=== PATIENT | female | born 1945 | race Caucasian/White ===

== ENCOUNTER 2020-08-29 13:16 | Outpatient (REF) | payer MEDICARE, OTHER, SELFPAY ==
--- NOTE | 2020-08-29 | XR_ITS ---
EXAMINATION: XR knee LT 4V CLINICAL INFORMATION: Reason for Exam PAIN COMPARISON: None available at the time of this dictation. TECHNIQUE: frontal, lateral, tunnel and patella sunrise views FINDINGS: BONES: No fracture or dislocation is present. JOINTS: Mild narrowing of medial and lateral joint spaces suggest degenerative osteoarthritis. There is intra-articular calcifications lateral compartment, concerning for calcium pyrophosphate deposition disease. SOFT TISSUE: Normal IMPRESSION: 1. Mild DJD. 2. Intra-articular calcifications concerning for possible CPPD. 3. No significant knee joint effusion.
== END 2020-08-29 13:17 | disposition home or self-care (01) ==
LOC: HO.XRAY 13:16
PROVIDERS: PCP Internal Medicine; Visit Provider Internal Medicine
DX: M25.562 Pain in left knee (principal)
CPT/HCPCS: 73564

== ENCOUNTER 2020-10-17 12:29 | Outpatient (REF) | payer MEDICARE, OTHER, SELFPAY ==
--- NOTE | 2020-10-17 | MM_ITS ---
EXAMINATION: MM SCREENING DIGITAL BREAST TOMOSYNTHESIS, BILATERAL CLINICAL INFORMATION: Screening. Asymptomatic. The lifetime risk of breast cancer based on the Tyrer-Cuzick Model is 4.7%. COMPARISON: Mammography: October 13, 2019 and studies dating back to September 14, 2012 TECHNIQUE: Digital breast tomosynthesis is performed in both the craniocaudal and mediolateral oblique views along with computer-aided detection (CAD). Synthesized 2D images are generated from the tomosynthesis. FINDINGS: There are scattered areas of fibroglandular density (ACR BI-RADS breast composition Category b). There are no significant masses, abnormal calcifications, or other abnormalities. MM/MM tomosynthesis screening BI IMPRESSION: There are no significant changes from prior study. ASSESSMENT: BI-RADS 1: Negative RECOMMENDATION: Routine annual mammography screening. This patient's information was entered into a reminder system with a target due date for their next mammogram.
== END 2020-10-17 12:30 | disposition home or self-care (01) ==
LOC: HO.MAMMO 12:29
PROVIDERS: PCP Internal Medicine; Visit Provider Internal Medicine
DX: Z12.31 Encounter for screening mammogram for malignant neoplasm of breast (principal)
CPT/HCPCS: 77063; 77067

== ENCOUNTER 2020-12-31 18:21 | Emergency (ER) | payer MEDICARE, OTHER, SELFPAY ==
--- NOTE | ~2020-12-31 | US_ITS ---
EXAMINATION: ULTRASOUND PELVIC, COMPLETE CLINICAL INFORMATION: Right-sided pelvic pain. COMPARISON: CT abdomen pelvis 12/31/2020. Ultrasound pelvis 09/29/2016 MR pelvis 03/25/2016. TECHNIQUE: Transvaginal: Used to better visualize pelvic structures Transabdominal: Not adequate visualization Spectral Doppler and color Doppler exam was utilized. LMP: Postmenopausal FINDINGS: UTERUS: Unremarkable. Uterus measures 6.8 x 2.1 x 4.2 cm. Endometrial stripe measures 0.2 cm. ADNEXA: Ovarian vascularity:Doppler demonstrates both arterial and venous vascular flow in the right ovary. No evidence of ovarian torsion. Right Ovary: There is a right adnexal cyst. Debris this has low-level echoes layering dependently, small volume of debris is otherwise anechoic. This cyst measures 5.9 x 6.9 cm. Both of these have not substantially changed since MR pelvis study of 03/25/2016. There is also a 1.5 cm follicle/cyst in the right ovary. The right ovary overall measures 5.9 x 6.9 x 7.4 cm. Left Ovary: Not visualized. No left adnexal abnormality. Cul-de-sac: No Fluid US/US transvaginal IMPRESSION: 1. Stable right ovarian cyst which have remained unchanged since 2016. Doppler demonstrates vascular flow in the right ovary. 2. Left ovary not visualized. No adnexal abnormality on the left. 3. Normal uterus.
--- NOTE | ~2020-12-31 | US_ITS ---
EXAMINATION: ULTRASOUND PELVIC, COMPLETE CLINICAL INFORMATION: Right-sided pelvic pain. COMPARISON: CT abdomen pelvis 12/31/2020. Ultrasound pelvis 09/29/2016 MR pelvis 03/25/2016. TECHNIQUE: Transvaginal: Used to better visualize pelvic structures Transabdominal: Not adequate visualization Spectral Doppler and color Doppler exam was utilized. LMP: Postmenopausal FINDINGS: UTERUS: Unremarkable. Uterus measures 6.8 x 2.1 x 4.2 cm. Endometrial stripe measures 0.2 cm. ADNEXA: Ovarian vascularity:Doppler demonstrates both arterial and venous vascular flow in the right ovary. No evidence of ovarian torsion. Right Ovary: There is a right adnexal cyst. Debris this has low-level echoes layering dependently, small volume of debris is otherwise anechoic. This cyst measures 5.9 x 6.9 cm. Both of these have not substantially changed since MR pelvis study of 03/25/2016. There is also a 1.5 cm follicle/cyst in the right ovary. The right ovary overall measures 5.9 x 6.9 x 7.4 cm. Left Ovary: Not visualized. No left adnexal abnormality. Cul-de-sac: No Fluid US/US pelvic ovarian doppler IMPRESSION: 1. Stable right ovarian cyst which have remained unchanged since 2016. Doppler demonstrates vascular flow in the right ovary. 2. Left ovary not visualized. No adnexal abnormality on the left. 3. Normal uterus.
--- NOTE | ~2020-12-31 | US_ITS ---
EXAMINATION: ULTRASOUND PELVIC, COMPLETE CLINICAL INFORMATION: Right-sided pelvic pain. COMPARISON: CT abdomen pelvis 12/31/2020. Ultrasound pelvis 09/29/2016 MR pelvis 03/25/2016. TECHNIQUE: Transvaginal: Used to better visualize pelvic structures Transabdominal: Not adequate visualization Spectral Doppler and color Doppler exam was utilized. LMP: Postmenopausal FINDINGS: UTERUS: Unremarkable. Uterus measures 6.8 x 2.1 x 4.2 cm. Endometrial stripe measures 0.2 cm. ADNEXA: Ovarian vascularity:Doppler demonstrates both arterial and venous vascular flow in the right ovary. No evidence of ovarian torsion. Right Ovary: There is a right adnexal cyst. Debris this has low-level echoes layering dependently, small volume of debris is otherwise anechoic. This cyst measures 5.9 x 6.9 cm. Both of these have not substantially changed since MR pelvis study of 03/25/2016. There is also a 1.5 cm follicle/cyst in the right ovary. The right ovary overall measures 5.9 x 6.9 x 7.4 cm. Left Ovary: Not visualized. No left adnexal abnormality. Cul-de-sac: No Fluid US/US pelvic complete IMPRESSION: 1. Stable right ovarian cyst which have remained unchanged since 2016. Doppler demonstrates vascular flow in the right ovary. 2. Left ovary not visualized. No adnexal abnormality on the left. 3. Normal uterus.
--- NOTE | ~2020-12-31 | CT_ITS ---
EXAMINATION: CT ABDOMEN AND PELVIS WITHOUT CONTRAST CLINICAL INFORMATION: Right-sided abdominal pain COMPARISON: CT abdomen pelvis 03/21/2016 TECHNIQUE: Multidetector volumetric imaging was performed from the superior aspect of the liver through the pubic symphysis. Sagittal and coronal reformatted images were obtained on the technologist's workstation. This CT examination was performed using dose optimization techniques as appropriate, variously including the following: *Automated exposure control *Adjustment of mA and/or kV according to patient size (this includes techniques or standardized protocols for targeted exams where dose is matched to indication/reason for exam; i.e. extremities or head) *Use of iterative reconstruction technique DLP: 393 mGy-cm FINDINGS: LUNG BASES: There is a 6 mm rounded nodule present at the right lung base that was not present 2016 (series 4 image 46). LIVER, GALLBLADDER, AND BILIARY TREE: The liver is normal in size, shape, and attenuation. A couple calcified granulomas are present. No focal hepatic lesion or biliary ductal dilatation is present. The gallbladder is unremarkable with no evidence of radiopaque gallstones, gallbladder wall thickening, or obvious pericholecystic inflammatory changes. PANCREAS: Unremarkable. SPLEEN: Calcified granulomas are present. ADRENAL GLANDS: Unremarkable. KIDNEYS AND URETERS: The kidneys are normal in size, shape, and attenuation. No hydronephrosis, hydroureter, or calculi seen. No perinephric stranding. BLADDER: Decompressed but unremarkable GASTROINTESTINAL TRACT: The small and large bowel are unremarkable. The appendix is unremarkable. ABDOMINAL WALL: No significant hernia is appreciated. LYMPH NODES: Normal. VASCULAR: Calcific plaque is present in the aorta. No aneurysm is seen. PELVIC VISCERA: A large complex cystic mass is present posterior to the uterus with thickened septations. Overall the mass measures 8.5 x 6.0 x 6.9 cm. Overall, this appears larger. At the time of the prior CT scan in 2016 with maximal dimension was 6.3 cm in the transverse plane. Solid components appear increased as do thickened septations. OSSEOUS STRUCTURES: Degenerative changes present in the spine. CT/CT abdomen pelvis wo con IMPRESSION: 1. Enlarging complex pelvic mass predominantly in the midline extending a bit to the right. Neoplasm cannot be excluded. Gynecological consultation is recommended. 2. Calcified granulomas in the liver and spleen 3. New 6 mm lung nodule right lung base. This should be followed via Fleischner Society criteria. According to the UPDATED 2017 Fleischner Society recommendations, the advised follow-up imaging for solid nodules < 6 mm is: LOW RISK PATIENT: No routine follow-up. HIGH RISK PATIENT: Optional CT at 12 months.
[2020-12-31 18:29] VITALS: BP 148/62; PULSE 80; RESP 16; TEMP 36.8; O2SAT 96; BMI 21.6
--- NOTE | 2020-12-31 19:16 | ECG_ITS ---
Test Reason : ABDOMINAL PAIN Blood Pressure : / mmHG Vent. Rate : 075 BPM Atrial Rate : 075 BPM P-R Int : 172 ms QRS Dur : 072 ms QT Int : 420 ms P-R-T Axes : 074 053 055 degrees QTc Int : 469 ms Normal sinus rhythm Normal ECG When compared with ECG of 21-MAR-2016 20:25, Premature supraventricular complexes are no longer Present Nonspecific T wave abnormality no longer evident in Anterior leads Referred By: Generic ED Physician Electronically Signed By:JOSEY MORALES MD
--- NOTE | 2020-12-31 19:25 | ED.ABDPAIN ---
HPI - Abdominal Pain General Chief Complaint: Abdominal Pain Stated Complaint: abd pain Time Seen by Provider: 12/31/20 19:25 Source: patient Mode of arrival: ambulatory Limitations: no limitations History of Present Illness HPI narrative: Patient's history of ovarian cyst since 2016 stable size does get ultrasound now almost every 6 months and followed up with product responsibility liaison comes here for increased pain in right lower abdominal area since morning today and nausea and vomited 1 time no diarrhea no fever no chills no urinary symptoms no flank pain MD elicited complaint: abdominal pain Pertinent past history: none Onset (ago): hour(s) Pain Consistency: intermittent Location: RLQ Related Data Allergies Allergy/AdvReac Type Severity Reaction Status Date / Time codeine [CODEINE] Allergy Unknown HIVES Unverified 07/26/20 14:38 ephedrine [EPHEDRINE] Allergy Unknown TACHYCARDIA Unverified 07/26/20 14:38 ibuprofen Allergy Unknown Verified 12/31/17 00:00 kiwi [KIWI] Allergy Unknown UNKNOWN Unverified 07/26/20 14:38 latex [LATEX] Allergy Unknown HIVES Unverified 07/26/20 14:38 morphine [MORPHINE] Allergy Unknown RASH Unverified 07/26/20 14:38 NSAIDS (Non-Steroidal Allergy Unknown STOMACH Unverified 07/26/20 14:38 Anti-Inflamma UPSET [NSAIDS] From DARVOCET-N 100 Allergy Severe SHORTNESS Uncoded 07/26/20 14:38 OF BREATH 5 Molds Allergy Unknown Uncoded 10/06/16 00:00 Cats Allergy Unknown Uncoded 10/06/16 00:00 cats Allergy Unknown Uncoded 12/31/17 00:00 Codeine Phosphate Allergy Unknown Uncoded 10/06/16 00:00 Darvocet A500 Allergy Unknown Uncoded 12/31/17 00:00 Dust Allergy Unknown Uncoded 10/06/16 00:00 dust Allergy Unknown Uncoded 12/31/17 00:00 Insects Allergy Unknown Uncoded 10/06/16 00:00 insects Allergy Unknown Uncoded 12/31/17 00:00 kiwi fruit Allergy Unknown Uncoded 12/31/17 00:00 Maple Allergy Unknown Uncoded 10/06/16 00:00 maple Allergy Unknown Uncoded 12/31/17 00:00 mold Allergy Unknown Uncoded 12/31/17 00:00 Novocain Allergy Unknown Uncoded 10/06/16 00:00 Pig weed Allergy Unknown Uncoded 10/06/16 00:00 pig weed Allergy Unknown Uncoded 12/31/17 00:00 poplar Allergy Unknown Uncoded 12/31/17 00:00 Ragweed Allergy Unknown Uncoded 10/06/16 00:00 ragweed Allergy Unknown Uncoded 12/31/17 00:00 rubber latex Allergy Unknown Uncoded 12/31/17 00:00 Review of Systems Review of Systems Constitutional : No Weight loss, No Fever, No Chills ENT/Mouth : No sore throat, No Rhinorrhea Eyes: No Eye Pain, No Swelling Cardiovascular : No Chest Pain, no palpitations Respiratory : No Cough, No Sputum, no shortness of breath Gastrointestinal : +Nausea, +Vomiting, No Diarrhea, + abdominal Pain, no black stools Genitourinary : No Dysuria, No Urinary Frequency Musculoskeletal : No joint pain, No Myalgias, No Joint Swelling Skin : No Skin Lesions, No rash Neuro : No Weakness, No Numbness, No Dizziness, No Headache Psych : No Anxiety/Panic, No Depression Heme/Lymph: No Bruising, No Lymphadenopathy Endocrine : No Polyuria, No Polydipsia All other systems reviewed and are negative Physical Exam Vital Signs: Vital Signs: Last Vital Signs Temp 98.3 F 12/31/20 18:29 Pulse 74 12/31/20 22:29 Resp 16 12/31/20 22:29 BP 126/52 L 12/31/20 22:29 Pulse Ox 94 12/31/20 22:29 Body Mass Index 21.6 Appearance: Alert. Oriented X3. In moderate distress. Eyes: Pupils equal, round and reactive to light. ENT: Pharynx normal. Neck: Normal inspection. Neck supple. CVS: Normal heart rate and rhythm. Pulses normal. Respiratory: No respiratory distress. Breath sounds normal. Abdomen: Soft , tenderness right lower quadrant with guarding no rebound tenderness Bowel sounds are present, no mass palpable, no CVA tenderness Skin: Skin warm and dry. Normal skin color. Normal skin turgor. Extremities: No lower extremity edema. No calf tenderness Neuro: Oriented X 3. No motor deficit. No sensory deficit. MDM - Abdominal Pain MDM Narrative Medical decision making narrative: Patient with right lower abdominal pain with history of ovarian cyst CT scan showed increase in the size of the cyst ultrasound was done which showed no change in the size of the cyst no torsion or hemorrhage in the cyst urine is negative for any infection no kidney stones appendix also normal etiology of pain is likely from ovarian cyst. Will discharge patient home on Tylenol and diclofenac sodium patch for the pain and advised to follow-up with product responsibility liaison Differential Diagnosis Differential diagnosis: Likely abdominal pain, acute appendicitis, calculus of kidney and pancreatitis Lab Data Result diagrams: 12/31/20 19:25 12/31/20 19:25 Labs: Lab Results 12/31/20 12/31/20 12/31/20 Range/Units 19:25 19:25 19:25 WBC 6.2 (4.8-10.8) X10*3/uL RBC 4.03 L (4.20-5.50) X10*6/uL Hgb 12.4 (12.0-16.0) g/dl Hct 37.4 (37-47) % MCV 92.8 (80-98) fL MCH 30.8 (27.0-33.0) pg MCHC 33.2 (31.0-35.0) g/dl RDW 12.4 (11.0-16.0) % Plt Count 253 (160-400) X10*3/uL MPV 8.9 L (9.4-12.3) fL Immature Gran % (Auto) 0.3 (0.0-0.4) % Neut % (Auto) 91.1 H (45-73) % Lymph % (Auto) 5.9 L (20-40) % [place] % (Auto) 2.4 (2-11) % Eos % (Auto) 0.0 (0-4) % Baso % (Auto) 0.3 (0-2) % Lymph # (Auto) 0.4 L (1.2-4.9) X10*3/uL [place] # (Auto) 0.2 (0.1-1.2) X10*3/uL Eos # (Auto) 0.0 (0.0-0.4) X10*3/uL Baso # (Auto) 0.0 (0.0-0.2) X10*3/uL Abs Immat Gran (auto) 0.02 (0.00-0.03) X10*3/uL Absolute Neuts (auto) 5.7 (2.0-8.3) X10*3/uL Absolute Nucleated RBC 0.000 (0.0-0.012) X10*3/uL Nucleated RBC % (auto) 0.0 (0.0-0.2) /100WBC Smear Tech's Comments VERIFIED Hold Blue Top SEE NOTE Sodium 142 (135-145) mmol/L Potassium 3.9 (3.3-5.1) mmol/L Chloride 105 (96-108) mmol/L Carbon Dioxide 25 (22-29) mmol/L Anion Gap 16 (12-20) BUN 14 (9-16) mg/dL Creatinine 0.77 (0.5-1.4) mg/dL Estim Creat Clear Calc 55.0 Estimated GFR > 60 Random Glucose 162 H (60-115) mg/dL Calcium 9.1 (8.4-10.2) mg/dL Total Bilirubin 0.5 (0.0-1.0) mg/dL AST 20 (5-31) U/L ALT 18 (0-31) U/L Alkaline Phosphatase 64 (39-117) U/L Troponin I High Sens (<3.5-17.0) ng/L Total Protein 7.1 (6.5-8.0) g/dL Albumin 4.2 (3.5-5.0) g/dL Lipase (8-78) U/L Urine Color Urine Appearance Urine pH (5.0-8.0) Ur Specific [place] (1.005-1.025) Urine Protein (NEG-TRACE) MG/DL Urine Glucose (UA) (NEG) MG/DL Urine Ketones (NEG) MG/DL Urine Blood (NEG) Urine Nitrite (NEG) Ur Leukocyte Esterase (NEG) 12/31/20 12/31/20 12/31/20 Range/Units 19:25 19:25 20:25 WBC (4.8-10.8) X10*3/uL RBC (4.20-5.50) X10*6/uL Hgb (12.0-16.0) g/dl Hct (37-47) % MCV (80-98) fL MCH (27.0-33.0) pg MCHC (31.0-35.0) g/dl RDW (11.0-16.0) % Plt Count (160-400) X10*3/uL MPV (9.4-12.3) fL Immature Gran % (Auto) (0.0-0.4) % Neut % (Auto) (45-73) % Lymph % (Auto) (20-40) % [place] % (Auto) (2-11) % Eos % (Auto) (0-4) % Baso % (Auto) (0-2) % Lymph # (Auto) (1.2-4.9) X10*3/uL [place] # (Auto) (0.1-1.2) X10*3/uL Eos # (Auto) (0.0-0.4) X10*3/uL Baso # (Auto) (0.0-0.2) X10*3/uL Abs Immat Gran (auto) (0.00-0.03) X10*3/uL Absolute Neuts (auto) (2.0-8.3) X10*3/uL Absolute Nucleated RBC (0.0-0.012) X10*3/uL Nucleated RBC % (auto) (0.0-0.2) /100WBC Smear Tech's Comments Hold Blue Top Sodium (135-145) mmol/L Potassium (3.3-5.1) mmol/L Chloride (96-108) mmol/L Carbon Dioxide (22-29) mmol/L Anion Gap (12-20) BUN (9-16) mg/dL Creatinine (0.5-1.4) mg/dL Estim Creat Clear Calc Estimated GFR Random Glucose (60-115) mg/dL Calcium (8.4-10.2) mg/dL Total Bilirubin (0.0-1.0) mg/dL AST (5-31) U/L ALT (0-31) U/L Alkaline Phosphatase (39-117) U/L Troponin I High Sens < 3.5 (<3.5-17.0) ng/L Total Protein (6.5-8.0) g/dL Albumin (3.5-5.0) g/dL Lipase 23 (8-78) U/L Urine Color YELLOW Urine Appearance CLEAR Urine pH 5.5 (5.0-8.0) Ur Specific [place] >= 1.030 H (1.005-1.025) Urine Protein TRACE (NEG-TRACE) MG/DL Urine Glucose (UA) NEG (NEG) MG/DL Urine Ketones 5 (NEG) MG/DL Urine Blood NEG (NEG) Urine Nitrite NEG (NEG) Ur Leukocyte Esterase NEG (NEG) PMFSH Past Medical History Medical History Ovarian cyst Social History Social History Advance Directives: No Advance Directives Information Provided: No
[2020-12-31 19:32] LABS: Basophils Percent Auto 0.3 % (0-2); Hematocrit 37.4 % (37-47); Hemoglobin 12.4 g/dl (12.0-16.0); Imm Gran Abs Auto 0.02 X10*3/uL (0.00-0.03); Imm Gran Pct Auto 0.3 % (0.0-0.4); Lymphocytes Absolute Auto 0.4 X10*3/uL (1.2-4.9); Lymphocytes Percent Auto 5.9 % (20-40); MANUAL DIFF FLAG SCAN; Mean Corpuscular HGB Conc 33.2 g/dl (31.0-35.0); Mean Corpuscular Hemoglobin 30.8 pg (27.0-33.0); Mean Corpuscular Volume 92.8 fL (80-98); Mean Platelet Volume 8.9 fL (9.4-12.3); Monocytes Absolute Auto 0.2 X10*3/uL (0.1-1.2); Monocytes Percent Auto 2.4 % (2-11); Neutrophils Absolute Auto 5.7 X10*3/uL (2.0-8.3); Neutrophils Percent Auto 91.1 % (45-73); Platelet Count 253 X10*3/uL (160-400); Red Blood Count 4.03 X10*6/uL (4.20-5.50); Red Cell Distribution Width 12.4 % (11.0-16.0); SCAN SMEAR FLAG 1; White Blood Count 6.2 X10*3/uL (4.8-10.8)
[2020-12-31 19:49] LABS: SLIDE REVIEW VERIFIED
[2020-12-31] MEDS: 0.9 % Sodium Chloride 1,000 ML 999 ML IVCONT ×2 (19:50→22:40)
[2020-12-31] MEDS: ondansetron HCL 4 MG/2 ML VIAL IVPUSH ×2 (19:50→21:30)
[2020-12-31] MEDS: HYDROmorphone HCl 0.5 MG/0.5 ML SYRINGE IVPUSH ×2 (19:50→20:35)
[2020-12-31 19:51] VITALS: BP 140/61; PULSE 83; RESP 24
--- NOTE | 2020-12-31 19:54 | PC.NURSE ---
Pt returns from CT, medicated per MAR for 10/10 pain to RLQ. IVF infusing. VSS. home theatre technician at bedside to obtain EKG. Call taylor within reach, continue to monitor.
[2020-12-31 20:04] LABS: Lipase 23 U/L (8-78)
[2020-12-31 20:05] LABS: Alanine Aminotransferase 18 U/L (0-31); Albumin Level 4.2 g/dL (3.5-5.0); Alkaline Phosphatase 64 U/L (39-117); Anion Gap 16 (12-20); Aspartate Amino Transferase 20 U/L (5-31); Bilirubin Total 0.5 mg/dL (0.0-1.0); Blood Urea Nitrogen 14 mg/dL (9-16); Calcium 9.1 mg/dL (8.4-10.2); Carbon Dioxide 25 mmol/L (22-29); Chloride 105 mmol/L (96-108); Estimated Glomerular Filt Rate > 60; Glucose Random 162 mg/dL (60-115); Potassium 3.9 mmol/L (3.3-5.1); Sodium 142 mmol/L (135-145); Total Protein 7.1 g/dL (6.5-8.0); Troponin-I High Sensitivity < 3.5 ng/L (<3.5-17.0)
[2020-12-31 20:06] VITALS: BP 140/86; PULSE 64; RESP 20; O2SAT 97
[2020-12-31 20:34] VITALS: BP 133/59; PULSE 75; RESP 20
--- NOTE | 2020-12-31 20:36 | PC.NURSE ---
Pt ambulating to the bathroom with assist to provide urine sample, pt voiding minimal amounts <100 ml. Pt denies difficulty urinating. Urine sample obtained and sent. Pt assisted back into bed into POC, medicated per JAN for 910 pain at this time. VSS. Call taylor within reach. MD at bedside discussing CT results and plan of care.
[2020-12-31 20:39] LABS: Glucose Urine UA NEG (NEG); Leukocyte Esterase Urine NEG (NEG); Nitrite Urine NEG (NEG); PH 5.5 (5.0-8.0); Specific Gravity - Urine >= 1.030 (1.005-1.025); Urine Blood NEG (NEG); Urine Ketones 5 MG/DL (NEG); Urine Protein TRACE MG/DL (NEG-TRACE)
[2020-12-31 20:40] LABS: Appearance Urine CLEAR; Color Urine YELLOW
[2020-12-31 21:30] VITALS: BP 126/51; PULSE 75; RESP 19
[2020-12-31 22:29] VITALS: BP 126/52; PULSE 74; RESP 16; O2SAT 94
--- NOTE | 2020-12-31 22:30 | PC.NURSE ---
Pt resting in bed, continues reporting persistent 10/10 pain to RLQ and nausea. Pt reports 2 episodes of vomiting during U/S. MD aware. VSS. Call taylor within reach. Continue to monitor.
[2020-12-31] MEDS: diphenhydrAMINE HCL 50 MG/ML VIAL 25 MG IVPUSH (22:40)
--- NOTE | 2020-12-31 22:42 | PC.NURSE ---
Pt medicated with Benadryl and IVF per MAR. VSS. Continue to monitor.
== END 2021-01-01 00:01 | disposition home or self-care (01) ==
PROVIDERS: Emergency Provider Internal Medicine; PCP Internal Medicine
DX: N83.291 Other ovarian cyst, right side (principal); N83.01 Follicular cyst of right ovary
CPT/HCPCS: 36415; 74176; 76830; 76856; 80053; 81003; 83690; 84484; 85025; 93005; 93975; 96361; 96374; 96375; 96376; 99284; J1170; J1200; J2405

== ENCOUNTER 2021-03-11 10:54 | Outpatient (REF) | payer MEDICARE, OTHER, SELFPAY ==
--- NOTE | ~2021-03-11 | US_ITS ---
EXAMINATION: US PELVIS AND TRANSVAGINAL CLINICAL INFORMATION: Right ovarian mass. COMPARISON: Right pelvis 12/31/2020. TECHNIQUE: Transabdominal and transvaginal imaging pelvis is performed. FINDINGS: The uterus is anteverted and anteflexed measuring 5.9 x 2.0 x 3.9 cm. Endometrial thickness is 0.4 cm. The uterus is homogeneous in echotexture. There is minimal fluid seen within the endometrial canal. There are several nabothian cysts seen in the cervix. The right ovary has been surgically removed. The left ovary measures 5.2 x 4.6 x 4.9 cm and volume 60.01 mL. There is a large anechoic cyst with a small central solid component and echogenic debris within. It measures 4.6 x 4.2 x 4.5 cm. US/US pelvic and transvaginal IMPRESSION: Predominantly cystic and a small solid component left ovarian complex cyst. It measures 4.6 cm in maximum dimension. Minimal fluid within the fundal endometrial canal. The uterus is otherwise unremarkable. Small nabothian cysts seen in the cervix.
== END 2021-03-11 10:55 | disposition home or self-care (01) ==
LOC: HO.US 10:54
PROVIDERS: PCP Internal Medicine; Visit Provider Obstetrics & Gynecology Gynecologic Oncology
DX: N83.9 Noninflammatory disorder of ovary, fallopian tube and broad ligament, unspecified (principal)
CPT/HCPCS: 76830; 76856

== ENCOUNTER 2021-10-22 10:11 | Outpatient (REF) | payer MEDICARE, OTHER, SELFPAY ==
--- NOTE | ~2021-10-22 | MM_ITS ---
EXAMINATION: BONE DENSITOMETRY CLINICAL INDICATION: Screening for osteoporosis. COMPARISON: Previous BD dated 10/08/2017 and baseline BD dated 09/07/2009. TECHNIQUE: Using a Ripple TV DXA System (software version: 13.1) manufactured by [employer], dual-energy x-ray absorptiometry was performed of the lumbar spine and left hip. The images are of good technical quality. Summary results are attached. FINDINGS: AP SPINE L1-L4: Current: BMD 1.086 g/cm2, Z-score 1.2, T-score -0.8, normal, 0.5% decrease from previous, 5.2% increase from baseline (<5% change is not significant). Prior: BMD 1.092 g/cm2. Baseline: BMD 1.032 g/cm2. LEFT FEMUR, NECK: Current: BMD 0.695 g/cm2, Z-score -0.3, T-score -2.5, osteoporosis. Prior: BMD 0.763 g/cm2. Baseline: BMD 0.783 g/cm2. LEFT FEMUR, TOTAL: Current: BMD 0.703 g/cm2, Z-score -0.4, T-score -2.4, osteopenia, 6.0% decrease from previous, 11.8% decrease from baseline (<5% change is not significant). Prior: BMD 0.748 g/cm2. Baseline: BMD 0.797 g/cm2. IDENTIFIED RISK FACTORS: Menopause, history of fracture (adult), family history (parent hip fracture). HISTORY OF FRACTURE: Sacral ala, 2018. MEDICATIONS: Calcium, vitamin D. MM/XR DEXA axial skeleton IMPRESSION: 1. DIAGNOSIS: Osteoporosis based on the lowest T-score value of -2.5 in the femoral neck applying World Health Organization criteria. 2. 10-YEAR FRACTURE RISK PREDICTION, FRAX: According to the guidelines, FRAX calculation should only be performed on patients in the osteopenia bone density category. 3. Treatment Recommendations: NOF guidelines recommend consideration for treatment in postmenopausal women and men age 50 and older presenting with the following: -A hip or vertebral (clinical or morphometric) fracture. -T-score less than or equal to -2.5 at the femoral neck or spine after appropriate evaluation to exclude secondary causes. -Low bone mass at the hip or spine and a 10-year fracture probability by FRAX of greater than or equal to 3% for hip fracture or greater than or equal to 20% for major osteoporotic fracture based on the [place] adapted WHO algorithm. 4. Other Recommendations: All treatment decisions require clinical judgment and consideration of individual patient factors, including patient preferences, comorbidities, previous drug use, risk factors not captured in the FRAX model (e.g. frailty, falls, vitamin D deficiency, increased bone turnover, interval significant decline in bone density) and possible under or overestimation of fracture risk by FRAX. Additional medical evaluation for secondary cause of low bone mineral density may be appropriate. FUTURE SCAN RECOMMENDATION: People with diagnosed cases of osteoporosis or at high risk for fracture should have regular bone mineral density tests. For patients eligible for Medicare, routine testing is allowed once every 2 years. The testing frequency can be increased to one year for patients who have rapidly progressing disease, those who are receiving or discontinuing medical therapy to restore bone mass, or have additional risk factors.
--- NOTE | ~2021-10-22 | MM_ITS ---
EXAMINATION: MM SCREENING DIGITAL BREAST TOMOSYNTHESIS, BILATERAL CLINICAL INFORMATION: Screening. Asymptomatic. The lifetime risk of breast cancer based on the Tyrer-Cuzick Model is 4%. COMPARISON: Mammography: 10/17/2020, 10/13/2019, 10/11/2018, 10/08/2017, 10/06/2016, 10/01/2015, 09/26/2014, 09/19/2014; targeted left breast ultrasound 09/26/2014. TECHNIQUE: Digital breast tomosynthesis is performed in both the craniocaudal and mediolateral oblique views along with computer-aided detection (CAD). Synthesized 2D images are generated from the tomosynthesis. FINDINGS: There are scattered areas of fibroglandular density (ACR BI-RADS breast composition Category b). Parenchymal pattern is similar to prior studies. There is waxing and waning oval cyst central upper outer left breast. Intramammary node mid upper outer right breast is stable. Asymmetric density posterior central breast on CC view is stable from prior exams. The axilla and skin contours are unremarkable. There are bilateral vascular and some scattered benign round calcifications. MM/MM tomosynthesis screening BI IMPRESSION: No significant changes from prior exams. ASSESSMENT: BI-RADS 2: Benign RECOMMENDATION: Routine annual mammography screening. This patient's information was entered into a reminder system with a target due date for their next mammogram.
== END 2021-10-22 10:12 | disposition home or self-care (01) ==
LOC: HO.MAMMO 10:11
PROVIDERS: PCP Internal Medicine; Visit Provider Internal Medicine
DX: Z12.31 Encounter for screening mammogram for malignant neoplasm of breast (principal); Z13.820 Encounter for screening for osteoporosis; M81.0 Age-related osteoporosis without current pathological fracture; Z78.0 Asymptomatic menopausal state; Z87.81 Personal history of (healed) traumatic fracture; Z79.899 Other long term (current) drug therapy
CPT/HCPCS: 77063; 77067; 77080

== ENCOUNTER 2022-02-06 13:24 | Outpatient (REF) | payer MEDICARE, OTHER, SELFPAY ==
--- NOTE | ~2022-02-06 | US_ITS ---
EXAMINATION: US PELVIS CLINICAL INFORMATION: Pelvic mass COMPARISON: Previous CT of the abdomen and pelvis December 2020 and pelvic ultrasound March 2021 TECHNIQUE: Ultrasound of the pelvis is performed using both transabdominal and transvaginal transducers along with Doppler. Transvaginal imaging is performed due to inadequate visualization transabdominally. FINDINGS: The uterus is anteverted and retroflexed and measures 6 x 2.3 x 4 cm in dimension. No focal uterine lesion is seen. Endometrial thickness is normal measuring 0.4 cm. The right ovary measures 1.9 x 1.6 x 1.8 cm. There is a 1.6 x 1.4 x 1.6 cm cyst in the right ovary. This is minimally complex with slightly thickened wall and internal echoes. This was not appreciated on previous exams. The left ovary is not seen. There is no fluid in pelvis. US/US pelvic and transvaginal IMPRESSION: 1.6 x 1.4 x 1.6 cm slightly complex right ovarian cyst. Left ovary not seen. Normal-appearing uterus.
== END 2022-02-06 13:25 | disposition home or self-care (01) ==
LOC: HO.US 13:24
PROVIDERS: Visit Provider Internal Medicine
DX: R19.00 Intra-abdominal and pelvic swelling, mass and lump, unspecified site (principal)
CPT/HCPCS: 76830; 76856

== ENCOUNTER 2022-08-04 10:50 | Outpatient (REF) | payer MEDICARE, OTHER, SELFPAY ==
--- NOTE | ~2022-08-04 | US_ITS ---
EXAMINATION: US PELVIS CLINICAL INFORMATION: Ovarian cyst COMPARISON: Pelvic ultrasound 03/11/2021 TECHNIQUE: Ultrasound of the pelvis is performed using both transabdominal and transvaginal transducers along with Doppler. Transvaginal imaging is performed due to inadequate visualization transabdominally. FINDINGS: Uterus: The uterus is anteverted and measures 6.4 x 2.3 x 4.2 cm. The double wall endometrial thickness is 3 mm. The uterus is smooth in contour and has normal myometrial echogenicity. No visible fibroid. Adnexa: The left ovary was not identified sonographically. No left adnexal mass.. There is no pelvic ascites or fluid collection. Right ovary measures 1.8 x 1.6 x 1.4 cm. Right ovary was only visualized transabdominally somewhat limiting evaluation. No right ovarian cyst is seen. US/US pelvic and transvaginal IMPRESSION: The left ovary was not identified sonographically. The right ovary was only visualized transabdominally, somewhat limiting evaluation however no right ovarian cyst is definitively appreciated.
== END 2022-08-04 10:51 | disposition home or self-care (01) ==
LOC: HO.US 10:50
PROVIDERS: Visit Provider Obstetrics & Gynecology Gynecologic Oncology
DX: N83.202 Unspecified ovarian cyst, left side (principal)
CPT/HCPCS: 76830; 76856

== ENCOUNTER 2022-10-28 09:45 | Outpatient (REF) | payer MEDICARE, OTHER, SELFPAY ==
--- NOTE | ~2022-10-28 | MM_ITS ---
EXAMINATION: MM SCREENING DIGITAL BREAST TOMOSYNTHESIS, BILATERAL CLINICAL INFORMATION: Screening. Asymptomatic. The lifetime risk of breast cancer based on the Tyrer-Cuzick Model is 3.6%. COMPARISON: Mammography: October 22, 2021 and studies dating back to October 01, 2015 TECHNIQUE: Digital breast tomosynthesis is performed in both the craniocaudal and mediolateral oblique views along with computer-aided detection (CAD). Synthesized 2D images are generated from the tomosynthesis. FINDINGS: There are scattered areas of fibroglandular density (ACR BI-RADS breast composition Category b). There are no significant masses, abnormal calcifications, or other abnormalities. MM/MM tomosynthesis screening BI IMPRESSION: No significant changes from prior exam. ASSESSMENT: BI-RADS 1: Negative RECOMMENDATION: Routine annual mammography screening. This patient's information was entered into a reminder system with a target due date for their next mammogram.
== END 2022-10-28 09:46 | disposition home or self-care (01) ==
LOC: HO.MAMMO 09:45
PROVIDERS: PCP Internal Medicine; Visit Provider Internal Medicine
DX: Z12.31 Encounter for screening mammogram for malignant neoplasm of breast (principal)
CPT/HCPCS: 77063; 77067

== ENCOUNTER 2023-02-12 11:34 | Outpatient (REF) | payer MEDICARE, OTHER, SELFPAY ==
--- NOTE | ~2023-02-12 | XR_ITS ---
EXAMINATION: XR KNEE, LEFT CLINICAL INFORMATION: Pain and swelling left knee COMPARISON: Radiographs left knee 08/29/2022. TECHNIQUE: Four views of the left knee. FINDINGS: No fracture, dislocation, or destructive process. No definite effusion. Hoffa's fat pad appears normal. Again, there is chondrocalcinosis medial lateral compartments. No focal joint narrowing or subchondral sclerosis or erosive changes. Axial patella view shows no lateralization or tilting. XR/XR knee LT 4V IMPRESSION: -Chondrocalcinosis medial lateral compartments. -No joint narrowing or erosive change. No definite effusion.
== END 2023-02-12 11:35 | disposition home or self-care (01) ==
LOC: HO.XRAY 11:34
PROVIDERS: PCP Internal Medicine; Visit Provider Internal Medicine
DX: R60.0 Localized edema (principal); M25.562 Pain in left knee
CPT/HCPCS: 73564

== ENCOUNTER 2023-03-30 13:32 | Outpatient (REF) | payer MEDICARE, OTHER, SELFPAY ==
--- NOTE | ~2023-03-30 | MR_ITS ---
EXAMINATION: MR KNEE WITHOUT CONTRAST, LEFT CLINICAL INFORMATION: Knee pain. Twisting injury 01/21/2023. Patient reports no prior left knee surgery. COMPARISON: X-ray 02/12/2023. MRI 10/11/2015 TECHNIQUE: MRI of the knee without contrast was performed using routine sequences on a high-field scanner. FINDINGS: MENISCI: Medial Meniscus: Intact Lateral Meniscus: Horizontal and tibial surface tear in the anterior horn. Subjacent small parameniscal cyst and soft tissue edema. Degeneration the body, with peripheral tibial surface tear and articular surface fraying. Partial tearing of the posterior root, with small caliber. LIGAMENTS: Cruciate: Intact Collateral: Intact EXTENSOR MECHANISM: Intact ARTICULAR CARTILAGE/BONE: Patellofemoral Compartment: [id number] cartilage thinning and irregularity in the patellar apex and medial facet, subchondral cyst/edema. Small marginal osteophytes. Medial Compartment: Marginal osteophytes. Cartilage thinning in the lateral aspect of the medial femoral condyle. Lateral Compartment: Marginal osteophytes. Foci of cartilage thinning in the weightbearing compartment, joint space loss, subchondral tibial plateau edema. JOINT FLUID AND BURSAE: Small effusion. Small-moderate Stringer's cyst, with debris/synovitis. MR/MR knee LT wo con IMPRESSION: 1. Tear of the anterior horn, body and posterior root of the lateral meniscus. 2. Mild-moderate patellofemoral, mild medial and lateral compartment arthritis. Interval progression from previous. 3. Small effusion. Small-moderate Stringer's cyst with debris/synovitis.
== END 2023-03-30 13:33 | disposition home or self-care (01) ==
LOC: HO.MRI 13:32
PROVIDERS: PCP Internal Medicine; Visit Provider Internal Medicine
DX: M25.562 Pain in left knee (principal)
CPT/HCPCS: 73721

== ENCOUNTER → 2023-05-08 10:21 | Outpatient (BNVA) | payer MEDICARE, OTHER, SELFPAY | PROVIDERS: PCP Internal Medicine; Visit Provider Physician Assistant | DX: M17.12 Unilateral primary osteoarthritis, left knee (principal) | CPT/HCPCS: 20610; 99202; J1040 ==

== ENCOUNTER 2023-11-03 09:42 | Outpatient (REF) | payer MEDICARE, OTHER, SELFPAY ==
--- NOTE | ~2023-11-03 | MM_ITS ---
EXAMINATION: BONE DENSITOMETRY CLINICAL INDICATION: Menopausal state. COMPARISON: Previous BD dated 10/22/2021 and baseline BD dated 09/07/2009. TECHNIQUE: Using a [employer] DXA System (software version: 13.1) manufactured by [employer], dual-energy x-ray absorptiometry was performed of the lumbar spine and left hip. The images are of good technical quality. Summary results are attached. FINDINGS: LEFT FEMUR, NECK: Current: BMD 0.435 g/cm2, Z-score -2.0, T-score -4.3, osteoporosis. Prior: BMD 0.695 g/cm2. Baseline: BMD 0.783 g/cm2. LEFT FEMUR, TOTAL: Current: BMD 0.455 g/cm2, Z-score -2.2, T-score -4.4, osteoporosis, 35.3% decrease from previous, 42.9% decrease from baseline (<5% change is not significant). Prior: BMD 0.703 g/cm2. Baseline: BMD 0.797 g/cm2. AP SPINE L1-L4: Current: BMD 0.999 g/cm2, Z-score 0.5, T-score -1.5, osteopenia, 8.0% decrease from previous, 3.2% decrease from baseline (<5% change is not significant). Prior: BMD 1.086 g/cm2. Baseline: BMD 1.032 g/cm2. IDENTIFIED RISK FACTORS: Menopause, parental hip fracture, history of fracture (adult). HISTORY OF FRACTURE: Spine. MEDICATIONS: Calcium supplements or multivitamin, vitamin D. MM/XR DEXA axial skeleton IMPRESSION: 1. DIAGNOSIS: Severe osteoporosis based on the lowest T-score value of -4.4 in the total femur and history of fracture applying World Health Organization criteria. 2. 10-YEAR FRACTURE RISK PREDICTION, FRAX: According to the guidelines, FRAX calculation should only be performed on patients in the osteopenia bone density category. Therefore, FRAX was not performed on this patient. 3. Treatment Recommendations: NOF guidelines recommend consideration for treatment in postmenopausal women and men age 50 and older presenting with the following: -A hip or vertebral (clinical or morphometric) fracture. -T-score less than or equal to -2.5 at the femoral neck or spine after appropriate evaluation to exclude secondary causes. -Low bone mass at the hip or spine and a 10-year fracture probability by FRAX of greater than or equal to 3% for hip fracture or greater than or equal to 20% for major osteoporotic fracture based on the [place] adapted WHO algorithm. 4. Other Recommendations: All treatment decisions require clinical judgment and consideration of individual patient factors, including patient preferences, comorbidities, previous drug use, risk factors not captured in the FRAX model (e.g. frailty, falls, vitamin D deficiency, increased bone turnover, interval significant decline in bone density) and possible under or overestimation of fracture risk by FRAX. Additional medical evaluation for secondary cause of low bone mineral density may be appropriate. FUTURE SCAN RECOMMENDATION: People with diagnosed cases of osteoporosis or at high risk for fracture should have regular bone mineral density tests. For patients eligible for Medicare, routine testing is allowed once every 2 years. The testing frequency can be increased to one year for patients who have rapidly progressing disease, those who are receiving or discontinuing medical therapy to restore bone mass, or have additional risk factors.
== END 2023-11-03 09:43 | disposition home or self-care (01) ==
LOC: HO.MAMMO 09:42
PROVIDERS: PCP Internal Medicine; Visit Provider Internal Medicine
DX: Z12.31 Encounter for screening mammogram for malignant neoplasm of breast (principal); Z13.820 Encounter for screening for osteoporosis; Z78.0 Asymptomatic menopausal state
CPT/HCPCS: 77063; 77067; 77080

== ENCOUNTER → 2023-11-03 10:30 | Outpatient (BNV) | payer MEDICARE, OTHER, SELFPAY | PROVIDERS: PCP Internal Medicine; Visit Provider Radiology Diagnostic Radiology | DX: Z12.31 Encounter for screening mammogram for malignant neoplasm of breast (principal) | CPT/HCPCS: 77063; 77067 ==

== ENCOUNTER 2024-02-08 13:25 | Outpatient (REF) | payer MEDICARE, OTHER, SELFPAY ==
--- NOTE | ~2024-02-08 | XR_ITS ---
EXAMINATION: XR KNEE, RIGHT CLINICAL INFORMATION: Pain of right knee. COMPARISON: Radiographs of right knee from 10/23/2015 TECHNIQUE: Four views of the right knee. FINDINGS: The knee joint spaces are normal. No arthritic deformity, fracture, subluxation or joint effusion. There is calcium deposition within menisci (i.e., chondrocalcinosis). XR/XR knee RT 4V IMPRESSION: There is meniscal chondrocalcinosis of the right knee. Otherwise, unremarkable exam.
== END 2024-02-08 13:26 | disposition home or self-care (01) ==
LOC: HO.XRAY 13:25
PROVIDERS: PCP Internal Medicine; Visit Provider Internal Medicine
DX: M25.561 Pain in right knee (principal)
CPT/HCPCS: 73564

== ENCOUNTER 2024-03-08 15:37 | Outpatient (REF) | payer MEDICARE, OTHER, SELFPAY ==
--- NOTE | ~2024-03-08 | MR_ITS ---
EXAMINATION: MR KNEE WITHOUT CONTRAST, RIGHT CLINICAL INFORMATION: Pain, rule out tear. COMPARISON: MRI of the right knee October 2015. TECHNIQUE: MRI of the knee without contrast was performed using routine sequences on a high-field scanner. FINDINGS: MENISCI: Medial Meniscus: Intact. Lateral Meniscus: There is subtle heterogeneity of the signal along the inner third portion of the body of the meniscus similar to prior. This could reflect grade 2 signal or stable meniscal tear. LIGAMENTS: Cruciate: Intact. Collateral: Intact. EXTENSOR MECHANISM: Intact ARTICULAR CARTILAGE/BONE: Patellofemoral Compartment: Minimal cartilage irregularity of the median ridge of the patella unchanged. Trochlear cartilage normal. Overall minimal patellofemoral arthrosis. Medial Compartment: Normal. Lateral Compartment: There is a focal 5 mm of cartilage loss and central osteophyte in the posterior weight-bearing portion of the lateral femoral condyle unchanged compared to prior. Tibial cartilage normal. Overall mild/focal arthrosis. JOINT FLUID AND BURSAE: There is a small Stringer's cyst slightly increased in size compared to prior. No joint effusion. MR/MR knee RT wo con IMPRESSION: 1. Subtle findings in the body of the lateral meniscus unchanged compared to prior. This could reflect grade 2 signal or stable meniscal tear. 2. Minimal patellofemoral arthrosis unchanged. 3. Mild/focal arthrosis of the lateral compartment unchanged. 4. Small Stringer's cyst slightly increased in size compared to prior.
== END 2024-03-08 15:38 | disposition home or self-care (01) ==
LOC: HO.MRI 15:37
PROVIDERS: PCP Internal Medicine; Visit Provider Internal Medicine
DX: Z00.00 Encounter for general adult medical examination without abnormal findings (principal)
CPT/HCPCS: 73721

== ENCOUNTER 2024-05-27 10:53 | Outpatient (AMB) | payer MEDICARE, OTHER, SELFPAY ==
--- NOTE | 2024-05-27 10:59 | A.OFFVIS_ITS ---
Intake Visit Reasons: New prob right knee pain Intake Note: Yen is a 79 year old female who presents today for a evaluation of her right knee pain, last injection was for her left knee on 05/08/23. MRI done on 03/08/24 for right knee. Patient reports she had a fall Dec 2023 and landed on her right knee. Her knee was sore at first but expresses it gradually worsened over time. Her pain is on the anterior and posterior aspect of the knee. Pain with ambulation down stairs and standing from a seated position. She needs to push herself off of the chair or table to be able to stand up from sitting. She is allergic to NSAIDs but when its really bad she will take Pepcid AC and wait a couple of minutes before she takes Advil. She is able to find relief with the Advil but only does this at night if she knows the pain will cause her to be unable to sleep. Denies numbness and tingling. She would like to discuss bilateral injections if it is necessary. Allergies codeine [CODEINE] Allergy (Unknown, Verified 05/27/24 11:08) HIVES ephedrine [EPHEDRINE] Allergy (Unknown, Verified 05/27/24 11:08) TACHYCARDIA ibuprofen Allergy (Unknown, Verified 05/27/24 11:08) Stomach Upset kiwi [KIWI] Allergy (Unknown, Verified 05/27/24 11:08) UNKNOWN latex [LATEX] Allergy (Unknown, Verified 05/27/24 11:08) HIVES morphine [MORPHINE] Allergy (Unknown, Verified 05/27/24 11:08) RASH NSAIDS (Non-Steroidal Anti-Inflamma [NSAIDS] Allergy (Unknown, Verified 05/27/24 11:08) STOMACH UPSET From DARVOCET-N 100 Allergy (Severe, Uncoded 05/27/24 11:08) SHORTNESS OF BREATH rubber latex Allergy (Severe, Uncoded 05/27/24 11:08) Rash 5 Molds Allergy (Unknown, Uncoded 05/27/24 11:08) Cough cats Allergy (Unknown, Uncoded 05/27/24 11:08) Unknown Codeine Phosphate Allergy (Unknown, Uncoded 05/27/24 11:08) rapid heart rate Darvocet A500 Allergy (Unknown, Uncoded 05/27/24 11:08) Shortness of Breath Dust Allergy (Unknown, Uncoded 05/27/24 11:08) Cough dust Allergy (Unknown, Uncoded 05/27/24 11:08) Cough Insects Allergy (Unknown, Uncoded 05/27/24 11:08) Swelling insects Allergy (Unknown, Uncoded 05/27/24 11:08) Swelling kiwi fruit Allergy (Unknown, Uncoded 05/27/24 11:08) swelling throat Maple Allergy (Unknown, Uncoded 05/27/24 11:08) Unknown maple Allergy (Unknown, Uncoded 05/27/24 11:08) sinus mold Allergy (Unknown, Uncoded 05/27/24 11:08) Cough Novocain Allergy (Unknown, Uncoded 05/27/24 11:08) Numbness Pig weed Allergy (Unknown, Uncoded 05/27/24 11:08) Unknown pig weed Allergy (Unknown, Uncoded 05/27/24 11:08) Unknown poplar Allergy (Unknown, Uncoded 05/27/24 11:08) Unknown Ragweed Allergy (Unknown, Uncoded 05/27/24 11:08) Unknown ragweed Allergy (Unknown, Uncoded 05/27/24 11:08) Unknown HPI HPI New prob right knee pain : Details: 79-year-old female who presents in the office today for an evaluation of right knee pain. I last saw the patient in the office for treatment of her left knee. ? ? While in the office today, the patient reports she fell in 12/2023 landing on her right knee. She states the right knee was sore at first and has gradually increased with time. She reports pain with ambulating down the stairs and transitioning to standing from a seated position. She states she needs assistance from a chair or table to stand up. She denies numbness and tingling. She is interested in discussing bilateral knee injections. ? ? Patient reports her pain is on the anterior and posterior aspect of the right knee. ? ? Patient reports being allergic to NSAIDs. However, when her pain is severe, she will take Pepcid AC and wait a few minutes before taking Advil. She does find relief with Advil. She only takes this at night is she feels the pain will keep her from sleeping. ? [facility] Medical History (Updated 05/27/24 @ 12:03 by Glenda Euceda) Positive TB test Ovarian cyst Social History Alcohol intake: never Patient Tobacco Use Status: Never used Tobacco Current occupational status: retired Review of Systems Const All systems reviewed & are unremarkable except as noted in HPI and below Physical Exam Const General: cooperative, healthy appearing and no acute distress Resp Effort & Inspection: normal respiratory effort and able to speak in complete sentences Cardio Rate: regular rate Peripheral pulses: Peripheral pulses 2+ throughout GI Palpation (GI): Soft to palpation Skin Lesions: no lesions Rashes: no rashes Extrem Other: Bilateral knees: Normal to inspection. No ecchymosis, erythema, or joint effusion. No tenderness to palpation to the medial joint line. Tenderness to palpation to the lateral joint line. Full knee extension and flexion. Crepitus felt with ROM. NVI. Assessment & Plan Assessment & Plan (1) Osteoarthritis of left knee: Code(s): M17.12 - Unilateral primary osteoarthritis, left knee Category: Medical (2) Osteoarthritis of right knee: Code(s): M17.11 - Unilateral primary osteoarthritis, right knee Category: Medical Plan Ms. Navarro is a 79-year-old female who presents in the office today for an evaluation of right knee pain. I last saw the patient in the office for treatment of her left knee. ? ? While in the office today, the patient reports she fell in 12/2023 landing on her right knee. She states the right knee was sore at first and has gradually increased with time. She reports pain with ambulating down the stairs and transitioning to standing from a seated position. She states she needs assistance from a chair or table to stand up. She denies numbness and tingling. She is interested in discussing bilateral knee injections. ? ? Patient reports her pain is on the anterior and posterior aspect of the right knee. ? ? Patient reports being allergic to NSAIDs. However, when her pain is severe, she will take Pepcid AC and wait a few minutes before taking Advil. She does find relief with Advil. She only takes this at night is she feels the pain will keep her from sleeping.? ? The patient was offered a cortisone injection in the bilateral knees with 80 mg of DepoMedrol. The patient was explained the risks, benefits, and alternatives to receiving this injection. After receiving consent for the injection, the patient had the procedure done while in the office today. The patient tolerated the procedure well with no complications.? ? Follow-up will be PRN, or sooner if needed. ? ? MRI of the right knee, obtained on 03/08/2024, revealed:? 1. Subtle findings in the body of the lateral meniscus unchanged? compared to prior. This could reflect grade 2 signal or stable meniscal? tear.? 2. Minimal patellofemoral arthrosis unchanged.? 3. Mild/focal arthrosis of the lateral compartment unchanged.? 4. Small Stringer's cyst slightly increased in size compared to prior.? ? X-rays of the right knee, obtained on 02/08/2024, revealed:? There is meniscal chondrocalcinosis of the right knee. Otherwise,? unremarkable exam.? Patient Instructions: Scribed by Glenda Euceda medical referral coordinator, for Anne South PA-C on 05/27/2024 at 11:22 am, EST.? Coding Level of Care Code Est Pt Level 4 (00743) Diagnoses Osteoarthritis of left knee M17.12 Osteoarthritis of right knee M17.11
== END 2024-05-27 11:30 | disposition home or self-care (01) ==
PROVIDERS: PCP Internal Medicine; Visit Provider Physician Assistant
DX: M17.0 Bilateral primary osteoarthritis of knee (principal)
CPT/HCPCS: 20610; 99214

== ENCOUNTER → 2024-05-27 10:53 | Outpatient (BNVA) | payer MEDICARE, OTHER, SELFPAY | PROVIDERS: PCP Internal Medicine; Visit Provider Physician Assistant | DX: M17.0 Bilateral primary osteoarthritis of knee (principal) | CPT/HCPCS: 20610; 99212; J1010 ==

== ENCOUNTER 2024-09-12 18:02 | Outpatient (REF) | payer MEDICARE, OTHER, SELFPAY ==
--- NOTE | ~2024-09-12 | MR_ITS ---
EXAMINATION: MR KNEE WITHOUT CONTRAST, LEFT CLINICAL INFORMATION: Pain, rule out tear. COMPARISON: None available. TECHNIQUE: MRI of the knee without contrast was performed using routine sequences on a high-field scanner. FINDINGS: MENISCI: Medial Meniscus: Inner margin fraying/tear of the posterior root/central posterior horn. There is intrasubstance T2 bright signal in the posterior horn/body junction extending to the peripheral aspect of the meniscus, could reflect degeneration or tear. Lateral Meniscus: Degeneration with superior and undersurface tear in the anterior horn. Degeneration with undersurface and free edge tear in the body. Degenerative fraying/tear of the posterior root/central posterior horn. LIGAMENTS: Cruciate: Increased T2 signal ACL and PCL suggesting mucoid degeneration or sprain. Collateral: Mild MCL sprain. Intact LCL complex. EXTENSOR MECHANISM: Intact. ARTICULAR CARTILAGE/BONE: Patellofemoral Compartment: Prominent chondral thinning in the central patella and medial patellar facet, subchondral edema. Lateral trochlea chondral heterogeneity. Medial Compartment: Chondral heterogeneity and fissuring in the medial femoral condyle. Lateral Compartment: Cartilage heterogeneity and fissuring in the weightbearing compartment. Marginal osteophytes. JOINT FLUID AND BURSAE: Small effusion. Small-moderate Stringer's cyst. Subcutaneous edema. MR/MR knee LT wo con IMPRESSION: 1. Tear of the anterior horn and body of the lateral meniscus. Degenerative fraying/tear of the posterior root/central posterior horn. 2. Inner margin fraying/tear of the posterior root/central posterior horn of the medial meniscus. Degeneration versus tear in the posterior horn/body junction. 3. Mucoid degeneration or sprain ACL and PCL. 4. Mild MCL sprain. 5. Mild tricompartment arthritis. 6. Small effusion. Small-moderate Stringer's cyst. Electronically signed by: Zeeshan Navarro MD 09/20/2024 04:34 PM [facility] [place]
== END 2024-09-12 18:03 | disposition home or self-care (01) ==
LOC: HO.MRI 18:02
PROVIDERS: PCP Internal Medicine; Visit Provider Internal Medicine
DX: M25.562 Pain in left knee (principal)
CPT/HCPCS: 73721

== ENCOUNTER 2024-09-22 10:33 | Outpatient (AMB) | payer MEDICARE, OTHER, SELFPAY ==
--- NOTE | 2024-09-22 10:44 | A.OFFVIS_ITS ---
Intake Visit Reasons: OV-Lt knee pain Intake Note: Yen is a 79 year old female who presents today for a follow up of he left knee OA. MRI was done on 09/12/24. Last injection 05/27/24. Patient reports having a lot of pain today and it wanting an injection in both knee. Allergies codeine [CODEINE] Allergy (Unknown, Verified 05/27/24 11:08) HIVES ephedrine [EPHEDRINE] Allergy (Unknown, Verified 05/27/24 11:08) TACHYCARDIA ibuprofen Allergy (Unknown, Verified 05/27/24 11:08) Stomach Upset kiwi [KIWI] Allergy (Unknown, Verified 05/27/24 11:08) UNKNOWN latex [LATEX] Allergy (Unknown, Verified 05/27/24 11:08) HIVES morphine [MORPHINE] Allergy (Unknown, Verified 05/27/24 11:08) RASH NSAIDS (Non-Steroidal Anti-Inflamma [NSAIDS] Allergy (Unknown, Verified 05/27/24 11:08) STOMACH UPSET From DARVOCET-N 100 Allergy (Severe, Uncoded 05/27/24 11:08) SHORTNESS OF BREATH rubber latex Allergy (Severe, Uncoded 05/27/24 11:08) Rash 5 Molds Allergy (Unknown, Uncoded 05/27/24 11:08) Cough cats Allergy (Unknown, Uncoded 05/27/24 11:08) Unknown Codeine Phosphate Allergy (Unknown, Uncoded 05/27/24 11:08) rapid heart rate Darvocet A500 Allergy (Unknown, Uncoded 05/27/24 11:08) Shortness of Breath Dust Allergy (Unknown, Uncoded 05/27/24 11:08) Cough dust Allergy (Unknown, Uncoded 05/27/24 11:08) Cough Insects Allergy (Unknown, Uncoded 05/27/24 11:08) Swelling insects Allergy (Unknown, Uncoded 05/27/24 11:08) Swelling kiwi fruit Allergy (Unknown, Uncoded 05/27/24 11:08) swelling throat Maple Allergy (Unknown, Uncoded 05/27/24 11:08) Unknown maple Allergy (Unknown, Uncoded 05/27/24 11:08) sinus mold Allergy (Unknown, Uncoded 05/27/24 11:08) Cough Novocain Allergy (Unknown, Uncoded 05/27/24 11:08) Numbness Pig weed Allergy (Unknown, Uncoded 05/27/24 11:08) Unknown pig weed Allergy (Unknown, Uncoded 05/27/24 11:08) Unknown poplar Allergy (Unknown, Uncoded 05/27/24 11:08) Unknown Ragweed Allergy (Unknown, Uncoded 05/27/24 11:08) Unknown ragweed Allergy (Unknown, Uncoded 05/27/24 11:08) Unknown HPI HPI OV-Lt knee pain: Details: 79-year-old female who presents in the office today for a follow-up of left knee pain. I last saw the patient in the office on 05/27/24 when the patient was given a cortisone injection to the bilateral knees. While in the office today, the patient reports experiencing severe pain today. She would like to have an injection in both the knees. She had an MRI of the left knee obtained on 09/12/24. The patient is allergic to NSAIDs. [facility] Medical History (Updated 05/27/24 @ 12:03 by Glenda Euceda) Positive TB test Ovarian cyst Social History Alcohol intake: never Patient Tobacco Use Status: Never used Tobacco Current occupational status: retired Review of Systems Const All systems reviewed & are unremarkable except as noted in HPI and below Physical Exam Const General: cooperative, healthy appearing and no acute distress Resp Effort & Inspection: normal respiratory effort and able to speak in complete sentences Cardio Rate: regular rate Peripheral pulses: Peripheral pulses 2+ throughout GI Palpation (GI): Soft to palpation Skin Lesions: no lesions Rashes: no rashes Extrem Other: Bilateral knees: Normal to inspection. No ecchymosis, erythema, or joint effusion. No tenderness to palpation along the medial or lateral joint lines. Full knee extension and flexion. Crepitus is felt with ROM. NVI. Office Procedures AMB Joint Injection/Aspiration Joint Injection/Aspiration Primary Site: right knee Secondary Site: left knee Prep: site was prepped using aseptic technique, ethochloride spray was applied and injection warnings given Injected: 80 mg of, DepoMedrol, with 8 mL of (2% plain lido ) and in the joint Approach Used: anterolateral Procedure: The patient tolerated the procedure well, but had some pain with the injection and there was some relief with the local anesthesia Coding - Large joint Procedure code (CPT) selection complete Assessment & Plan Assessment & Plan (1) Osteoarthritis of right knee: Code(s): M17.11 - Unilateral primary osteoarthritis, right knee Category: Medical (2) Osteoarthritis of left knee: Code(s): M17.12 - Unilateral primary osteoarthritis, left knee Category: Medical Plan Ms. Navarro is an 79-year-old female who presents in the office today for a follow-up of left knee pain. I last saw the patient in the office on 05/27/24 when the patient was given a cortisone injection to the bilateral knees. While in the office today, the patient reports experiencing severe pain today. She would like to have an injection in both the knees. She had an MRI of the left knee obtained on 09/12/24. The patient is allergic to NSAIDs. The patient was offered a cortisone injection in the bilateral knees with 80 mg of Depo-Medrol. The patient was explained the risks, benefits, and alternatives to receiving this injection. After receiving consent for the injection, the patient had the procedure done while in the office today. The patient tolerated the procedure well with no complication. Follow-up will be PRN, or sooner if needed. MRI of the left knee, obtained on 09/12/24, revealed: 1. Tear of the anterior horn and body of the lateral meniscus. Degenerative fraying/tear of the posterior root/central posterior horn. 2. Inner margin fraying/tear of the posterior root/central posterior horn of the medial meniscus. Degeneration versus tear in the posterior horn/body junction. 3. Mucoid degeneration or sprain ACL and PCL. 4. Mild MCL sprain. 5. Mild tricompartment arthritis. 6. Small effusion. Small-moderate Stringer's cyst. Patient Instructions: Scribed by Alejandra Wright biomedical engineering professor, for Anne South PA-C on 09/22/24 at 11:36 am EST. Coding Level of Care Code Est Pt Level 3 (48507) Diagnoses Osteoarthritis of right knee M17.11 Osteoarthritis of left knee M17.12 CPT Codes Coding - Large joint: 73529 - Large joint ([id number])
== END 2024-09-22 11:24 | disposition home or self-care (01) ==
PROVIDERS: PCP Internal Medicine; Visit Provider Physician Assistant
DX: M17.0 Bilateral primary osteoarthritis of knee (principal)
CPT/HCPCS: 20610; 99213

== ENCOUNTER → 2024-09-22 10:33 | Outpatient (BNVA) | payer MEDICARE, OTHER, SELFPAY | PROVIDERS: PCP Internal Medicine; Visit Provider Physician Assistant | DX: M17.0 Bilateral primary osteoarthritis of knee (principal) | CPT/HCPCS: 20610; 99212; J1010; J2003 ==

== ENCOUNTER 2024-11-07 09:40 | Outpatient (REF) | payer MEDICARE, OTHER, SELFPAY | END 2024-11-07 09:41 | disposition home or self-care (01) | LOC: HO.MAMMO 09:40 | PROVIDERS: PCP Internal Medicine; Visit Provider Internal Medicine | DX: Z12.31 Encounter for screening mammogram for malignant neoplasm of breast (principal) | CPT/HCPCS: 77063; 77067 ==

== ENCOUNTER → 2024-11-07 10:00 | Outpatient (BNV) | payer MEDICARE, OTHER, SELFPAY | PROVIDERS: PCP Internal Medicine; Visit Provider Internal Medicine | DX: Z12.31 Encounter for screening mammogram for malignant neoplasm of breast (principal) | CPT/HCPCS: 77063; 77067 ==

== ENCOUNTER 2025-03-13 11:07 | Outpatient (REF) | payer MEDICARE, OTHER, SELFPAY ==
--- NOTE | ~2025-03-13 | XR_ITS ---
EXAMINATION: XR CHEST 2 VIEWS HISTORY: PAIN LEFT SIDE. COMPARISON: Comparison is made with the prior examination dated 01/14/2018. FINDINGS: PA and lateral views of the chest are submitted. The lungs are hyperinflated, consistent with COPD. There is linear subsegmental atelectasis versus scarring in the right middle lobe. The left lung is clear. There is no pleural effusion, pneumothorax, or pulmonary vascular congestion. There is degenerative disc disease of the spine. The bones are intact. XR/XR chest 2V IMPRESSION: COPD. Right middle lobe subsegmental atelectasis versus scarring. Electronically signed by: Kojo Rodriguez MD 03/13/2025 11:47 AM EDT
== END 2025-03-13 11:08 | disposition home or self-care (01) ==
LOC: HO.XRAY 11:07
PROVIDERS: PCP Internal Medicine; Visit Provider Internal Medicine
DX: R07.9 Chest pain, unspecified (principal)
CPT/HCPCS: 71046

== ENCOUNTER → 2025-03-13 11:30 | Outpatient (BNV) | payer MEDICARE, OTHER, SELFPAY | PROVIDERS: PCP Internal Medicine; Visit Provider Radiology Diagnostic Radiology | DX: J44.9 Chronic obstructive pulmonary disease, unspecified (principal) | CPT/HCPCS: 71046 ==

== ENCOUNTER 2025-03-29 11:48 | Outpatient (REF) | payer MEDICARE, OTHER, SELFPAY ==
--- NOTE | ~2025-03-29 | XR_ITS ---
EXAMINATION: X-ray knee bilaterally. CLINICAL INFORMATION: Status post fall. Knee pain. TECHNIQUE: AP view in standing position both knees. Lateral and sunrise views both knees. COMPARISON: Right knee x-ray dated February 28, 2024 and left knee x-ray dictated February 12, 2023. FINDINGS: Joint space narrowing involving all 3 compartments. Chondrocalcinosis in the medial lateral compartments of the knees. No acute cortical disruption or gross malalignment. Osteopenia versus osteoporosis. No gross suprapatellar bursa joint effusion. No metallic or radiopaque foreign body. No subcutaneous emphysema. XR/XR Knee Reyes 4V IMPRESSION: Tricompartmental osteoarthrosis without acute fracture or dislocation. Consider CPPD. Osteopenia versus osteoporosis. Electronically signed by: Ugo Mcconnell MD 03/29/2025 12:47 PM EDT
== END 2025-03-29 11:49 | disposition home or self-care (01) ==
LOC: HO.XRAY 11:48
PROVIDERS: PCP Internal Medicine; Visit Provider Internal Medicine
DX: M25.561 Pain in right knee (principal); M25.562 Pain in left knee; Z91.81 History of falling
CPT/HCPCS: 73564

== ENCOUNTER → 2025-03-29 11:55 | Outpatient (BNV) | payer MEDICARE, OTHER, SELFPAY | PROVIDERS: PCP Internal Medicine; Visit Provider Radiology Diagnostic Radiology | DX: M25.561 Pain in right knee (principal); M25.562 Pain in left knee | CPT/HCPCS: 73564 ==

== ENCOUNTER 2025-05-22 12:57 | Outpatient (AMB) | payer MEDICARE, OTHER, SELFPAY ==
--- NOTE | 2025-05-22 13:03 | MHC.OFFVIS ---
Intake Visit Reasons: Inj-B/L knee cortisone - last time 09/22/24 Intake Note: Yen is 80 year old female who presents today for a repeat injection for her bilateral knees, last injection 09/22/24. Patient reports that she typically has good relief with cortisone injection. Allergies codeine (CODEINE) Allergy (Unknown, Verified 05/27/24 11:08) HIVES ephedrine (EPHEDRINE) Allergy (Unknown, Verified 05/27/24 11:08) TACHYCARDIA ibuprofen Allergy (Unknown, Verified 05/27/24 11:08) Stomach Upset kiwi (KIWI) Allergy (Unknown, Verified 05/27/24 11:08) UNKNOWN latex (LATEX) Allergy (Unknown, Verified 05/27/24 11:08) HIVES morphine (MORPHINE) Allergy (Unknown, Verified 05/27/24 11:08) RASH NSAIDS (Non-Steroidal Anti-Inflamma (NSAIDS) Allergy (Unknown, Verified 05/27/24 11:08) STOMACH UPSET From DARVOCET-N 100 Allergy (Severe, Uncoded 05/27/24 11:08) SHORTNESS OF BREATH rubber latex Allergy (Severe, Uncoded 05/27/24 11:08) Rash 5 Molds Allergy (Unknown, Uncoded 05/27/24 11:08) Cough cats Allergy (Unknown, Uncoded 05/27/24 11:08) Unknown Codeine Phosphate Allergy (Unknown, Uncoded 05/27/24 11:08) rapid heart rate Darvocet A500 Allergy (Unknown, Uncoded 05/27/24 11:08) Shortness of Breath Dust Allergy (Unknown, Uncoded 05/27/24 11:08) Cough dust Allergy (Unknown, Uncoded 05/27/24 11:08) Cough Insects Allergy (Unknown, Uncoded 05/27/24 11:08) Swelling insects Allergy (Unknown, Uncoded 05/27/24 11:08) Swelling kiwi fruit Allergy (Unknown, Uncoded 05/27/24 11:08) swelling throat Maple Allergy (Unknown, Uncoded 05/27/24 11:08) Unknown maple Allergy (Unknown, Uncoded 05/27/24 11:08) sinus mold Allergy (Unknown, Uncoded 05/27/24 11:08) Cough Novocain Allergy (Unknown, Uncoded 05/27/24 11:08) Numbness Pig weed Allergy (Unknown, Uncoded 05/27/24 11:08) Unknown pig weed Allergy (Unknown, Uncoded 05/27/24 11:08) Unknown poplar Allergy (Unknown, Uncoded 05/27/24 11:08) Unknown Ragweed Allergy (Unknown, Uncoded 05/27/24 11:08) Unknown ragweed Allergy (Unknown, Uncoded 05/27/24 11:08) Unknown HPI HPI Inj-B/L knee cortisone - last time 09/22/24: Details: Ms. Navarro is an 80 yo female who presents to the office today for bilateral knee chronic pain. She has osteoarthritis and received cortisone injections. She would like to repeat injections while in the office today. Last injection was 09/22/2024. REPLACED BY [facility] Medical History (Updated 05/27/24 @ 12:03 by Glenda Euceda) Positive TB test Ovarian cyst Social History Alcohol intake: never Patient Tobacco Use Status: Never used Tobacco Current occupational status: retired Review of Systems Const All systems reviewed & are unremarkable except as noted in HPI and below Physical Exam Const General: cooperative, healthy appearing and no acute distress Resp Effort & Inspection: normal respiratory effort and able to speak in complete sentences Extrem Other: Bilateral knees: Normal to inspection. No ecchymosis, erythema, or joint effusion. No tenderness to palpation along the medial or lateral joint lines. Full knee extension and flexion. Crepitus is felt with ROM. NVI. Office Procedures AMB Joint Injection/Aspiration Joint Injection/Aspiration Primary Site: right knee Secondary Site: left knee Prep: site was prepped using aseptic technique, ethochloride spray was applied and injection warnings given Injected: 80 mg of, DepoMedrol and with 8 mL of (2% plain lidocaine) Approach Used: anterolateral Procedure: The patient tolerated the procedure well, but had some pain with the injection and there was some relief with the local anesthesia Coding 17933 - Bilateral Large Joint Procedure code (CPT) selection complete Assessment & Plan Assessment & Plan (1) Osteoarthritis of left knee: Code(s): M17.12 - Unilateral primary osteoarthritis, left knee Category: Medical (2) Osteoarthritis of right knee: Code(s): M17.11 - Unilateral primary osteoarthritis, right knee Category: Medical Plan The patient was offered a cortisone injection in bilateral knees with 80 mg of DepoMedrol. The patient was explained the risks, benefits, and alternatives to receiving this injection. After receiving consent for the injection, the patient had the procedure done while in the office today. The patient tolerated the procedure well with no complications. Follow-up will be PRN, or sooner if needed Coding Level of Care Code Est Pt Level 3 (56397) Diagnoses Osteoarthritis of left knee M17.12 Osteoarthritis of right knee M17.11 CPT Codes Coding - 01995 - Bilateral Large Joint: 76976 - Bilateral Large Joint ([id number])
== END 2025-05-22 14:09 | disposition home or self-care (01) ==
LOC: HO.HOS 12:58
PROVIDERS: PCP Family Medicine; Visit Provider Physician Assistant
DX: M17.0 Bilateral primary osteoarthritis of knee (principal)
CPT/HCPCS: 20610; 99213

== ENCOUNTER → 2025-05-22 12:57 | Outpatient (BNVA) | payer MEDICARE, OTHER, SELFPAY | PROVIDERS: PCP Family Medicine; Visit Provider Physician Assistant | DX: M25.562 Pain in left knee (principal); M25.561 Pain in right knee; M17.0 Bilateral primary osteoarthritis of knee; Z79.52 Long term (current) use of systemic steroids | CPT/HCPCS: 20610; 99212; J1010; J2003 ==

== ENCOUNTER 2025-08-31 10:28 | Outpatient (AMB) | payer MEDICARE, OTHER, SELFPAY ==
--- NOTE | 2025-08-31 10:20 | MHC.PC.OV ---
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 Required: No Is last menstrual period known: No Post menopausal: Yes Patient : No Allergies codeine (CODEINE) Allergy (Unknown, Verified 08/31/25 10:22) HIVES ephedrine (EPHEDRINE) Allergy (Unknown, Verified 08/31/25 10:22) TACHYCARDIA ibuprofen Allergy (Unknown, Verified 08/31/25 10:22) Stomach Upset kiwi (KIWI) Allergy (Unknown, Verified 08/31/25 10:22) UNKNOWN latex (LATEX) Allergy (Unknown, Verified 08/31/25 10:22) HIVES morphine (MORPHINE) Allergy (Unknown, Verified 08/31/25 10:22) RASH NSAIDS (Non-Steroidal Anti-Inflamma (NSAIDS) Allergy (Unknown, Verified 08/31/25 10:22) STOMACH UPSET From DARVOCET-N 100 Allergy (Severe, Uncoded 05/27/24 11:08) SHORTNESS OF BREATH rubber latex Allergy (Severe, Uncoded 05/27/24 11:08) Rash 5 Molds Allergy (Unknown, Uncoded 05/27/24 11:08) Cough cats Allergy (Unknown, Uncoded 05/27/24 11:08) Unknown Codeine Phosphate Allergy (Unknown, Uncoded 05/27/24 11:08) rapid heart rate Darvocet A500 Allergy (Unknown, Uncoded 05/27/24 11:08) Shortness of Breath Dust Allergy (Unknown, Uncoded 05/27/24 11:08) Cough dust Allergy (Unknown, Uncoded 05/27/24 11:08) Cough Insects Allergy (Unknown, Uncoded 05/27/24 11:08) Swelling insects Allergy (Unknown, Uncoded 05/27/24 11:08) Swelling kiwi fruit Allergy (Unknown, Uncoded 05/27/24 11:08) swelling throat Maple Allergy (Unknown, Uncoded 05/27/24 11:08) Unknown maple Allergy (Unknown, Uncoded 05/27/24 11:08) sinus mold Allergy (Unknown, Uncoded 05/27/24 11:08) Cough Novocain Allergy (Unknown, Uncoded 05/27/24 11:08) Numbness Pig weed Allergy (Unknown, Uncoded 05/27/24 11:08) Unknown pig weed Allergy (Unknown, Uncoded 05/27/24 11:08) Unknown poplar Allergy (Unknown, Uncoded 05/27/24 11:08) Unknown Ragweed Allergy (Unknown, Uncoded 05/27/24 11:08) Unknown ragweed Allergy (Unknown, Uncoded 05/27/24 11:08) Unknown Medication List - Last Reconciled 08/31/25 by Julio Edwards MD No Known Home Meds Tobacco use date assessed: 08/31/25 Fall risk assessment: 1 Fall in past year Last assessed Fall Risk: 08/31/25 Dental Screening Dental Screen Date: 08/31/25 Did you have a dental visit in the last 12 months?: Yes Did you have a dental problem in the last 6 months where you did not have access to dental care?: No Was dental information given to patient?: No 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 ?? Prior PCP:? Dr. Yepez Last office visit/CPE:? April for anxiety Acute issue(s):? Anxiety - had lorazepam but fogginess. Now using melatonin ?? PMHx:? Anxiety, HLD, Osteoporosis, OA knees & L torn meniscus. Herniated discs Lumbar. Sacroiliitis. SurgHx:? SocHx: Nonsmoker, EtOH None. Exercise: Walks dogs [facility] Medical History (Updated 08/31/25 @ 11:20 by Julio Edwards MD) Positive TB test Ovarian cyst Social History Housing: House Alcohol intake: never Patient Tobacco Use Status: Never used Tobacco e-Cigarette/Vaping Use: Never Used Second Hand Smoke Exposure: No Patient : No service: No Current occupational status: retired Current occupational exposures/hazards: No Cognitive needs: No Hearing needs: No Vision needs: Yes Questionnaire PHQ-9 Over the last 2 weeks, how often have you been bothered by any of the following problems? 1. Little interest or pleasure in doing things: not at all 2. Feeling down, depressed, or hopeless: not at all 3. Trouble falling or staying asleep, or sleeping too much: not at all 4. Feeling tired or having little energy: several days 5. Poor appetite or overeating: not at all 6. Feeling bad about yourself - or that you are a failure or have let yourself or your family down: not at all 7. Trouble concentrating on things, such as reading the newspaper or watching television: not at all 8. Moving or speaking so slowly that other people could have noticed. Or the opposite - being so fidgety or restless that you have been moving around a lot more than usual: not at all 9. Thoughts that you would be better off or of hurting yourself in some way: not at all Total score: 1 Depression Screening Interpretation: Negative Depression Screening Done: Yes 38311 - PHQ-9 Billing: Yes Source: Developed by Drs. Kojo Tapia, Alicia Finney, Rupert Pulliam and colleagues, with an educational yoel from [employer]. Thrive Questionnaire Date Thrive assessed: 08/31/25 I am a: Patient What is your living situation today?: I have a steady place to live Within the past 12 months, did the food you bought not last and you didn't have the money to get more?: Never true Within the past 12 months, did you worry whether your food would run out before you got money to buy more?: Never true Do you have trouble paying for medicines?: No Do you have trouble getting transportation to medical appointments?: No Do you have trouble paying your heating and electricity bill?: No Do you have trouble taking care of your child, family member or friend?: No Do you have trouble with day-to-day activities such as bathing, preparing meals, shopping, managing finances, etc.?: No Are you currently unemployed and looking for a job?: No Are you interested in more education?: No Please select the resources that you would like help with: None Currently or been in a relationship where the following occur: No concerns reported THRIVE Score: 0 AUDIT C Alcohol Use Questionnaire (AUDIT-C) 1. How often do you have a drink containing alcohol?: Never Total Score: 0 CARLOS ALBERTO-7 AMB Questionnaire CARLOS ALBERTO-7 Date CARLOS ALBERTO - 7 assessed: 08/31/25 Feeling nervous, anxious, or on edge: 0 = Not at all Not being able to stop or control worryin = Not at all Worrying too much about different things: 0 = Not at all Trouble relaxin = Not at all Being so restless that it is hard to sit still: 0 = Not at all Becoming easily annoyed or irritable: 0 = Not at all Feeling afraid as if something awful might happen: 0 = Not at all Total CARLOS ALBERTO-7 score (0-4 normal; 5-9 mild; 10-14 moderate; 15-21 severe): 0 Source: Developed by Drs. Kojo Tapia, Alicia Finney, Rupert Pulliam and colleagues, with an educational yoel from [employer]. Review of Systems Const Denies chills, Denies fatigue, Denies fever(s), Denies headache(s) and Denies weakness ENT Denies dizziness and Denies headache(s) Card Denies chest pain, Denies lightheadedness, Denies dyspnea and Denies other (Palpitations) Resp Denies cough, Denies dyspnea, Denies wheezing and Denies other ( shortness of breath) Musc Denies numbness and Denies tingling Neuro Denies dizziness, Denies headache(s), Denies numbness, Denies tingling, Denies paresthesias and Denies weakness Psych Reports anxiety Endo Denies fatigue Aller/Immun Denies wheezing Physical exam (Primary Care) Vital Signs: Last Vital Signs Temp 97.7 F 08/31/25 10:26 Pulse 81 08/31/25 10:26 Resp 16 08/31/25 10:26 BP 120/60 08/31/25 10:26 Pulse Ox 96 08/31/25 10:26 Oxygen Delivery Method Room Air 08/31/25 10:26 BMI result Body Mass Index 20.9 Tobacco/Smoking Status: Tobacco use Status Tobacco use date assessed 08/31/25 08/31/25 10:25 Patient Tobacco Use Status Never used Tobacco 08/31/25 10:21 e-Cigarette/Vaping Use Never Used 08/31/25 10:25 PHQ-9: PHQ-9 Score PHQ-9: Total score 1 08/31/25 10:53 Depression Screening Interpretation: Negative Thrive Assessment: Date of Thrive Assessment Date Thrive assessed 08/31/25 08/31/25 10:25 Currently or been in a relationship where the following occur: No concerns reported Const General: no acute distress and well developed Nutritional Appearance: well nourished Orientation/consciousness: patient oriented x3 HENMT Head: Yes normocephalic and Yes atraumatic Eyes General: appearance normal, both eyes and all related structures Pupils: Equal, round and reactive pupils present EOM: EOMs intact bilaterally Resp Effort & Inspection: normal respiratory effort Auscultation: clear to auscultation bilaterally Cardio Rate: regular rate Rhythm: regular rhythm Heart sounds: S1 normal heart sound present, S2 normal heart sound present, no gallops, no murmurs and no rubs Neuro General: patient oriented x3 and gait normal Cranial nerves: Yes Equal, round and reactive pupils present Psych Affect: normal affect Coding Level of Care Code New Pt Level 3 (13018) Diagnoses Osteoarthritis of knee M17.9 Anxiety F41.9 Osteoporosis M81.0 Back pain M54.9 Hyperlipidemia E78.5 Laboratory exam ordered as part of routine general medical examination Z00.00 Additional Codes PHQ-9 - 28025 - PHQ-9 Billing: Yes ([id number]) Assessment & Plan Assessment & Plan (1) Osteoarthritis of knee: Code(s): M17.9 - Osteoarthritis of knee, unspecified Category: Medical Plan: Significant osteoarthritis of the knee and also left meniscal tear Recommend she wear a knee brace when she is going for walks or walking her dogs - can otherwise take it off and keep legs strong Follow-up with ortho as recommended. Patient says they plan injection therapy. (2) Anxiety: Code(s): F41.9 - Anxiety disorder, unspecified Category: Medical Plan: Significant anxiety due to spouse with Alzheimer's disease. She declines medication or therapist at this time though she does have good family support in her daughter who is a director social welfare. Recommended she discuss relaxation techniques and coping strategies with her daughter. Let patient know that medications and professional therapy are available if she wants it Ultimately, patient feels that her anxiety will significantly improve when she is able to get her in to the [facility] (3) Osteoporosis: Code(s): M81.0 - Age-related osteoporosis without current pathological fracture Category: Medical Plan: Bone density in 2022 so severe osteoporosis. T-score less than -4 She was unable to tolerate alendronate She is taking calcium, magnesium and vitamin-D Will check labs and she is due for bone density test in October - ordered Lastly, recommended weight-bearing exercise which she will implement (4) Back pain: Code(s): M54.9 - Dorsalgia, unspecified Category: Medical Plan: Stable Uses Tylenol Does not tolerate NSAIDs but has never tried celecoxib. 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 (6) Laboratory exam ordered as part of routine general medical examination: Code(s): Z00.00 - Encounter for general adult medical examination without abnormal findings Category: Medical Plan: Check Labs Orders: Orders Lipid Panel Today Z00.00 - Encounter for general adult medical examination without abnormal findings UA CC w/rflx Micro + Cult Today Z00.00 - Encounter for general adult medical examination without abnormal findings Vitamin D 25-OH Total Today E55.9 - Vitamin D deficiency, unspecified Vitamin B12 and Folate Today E53.8 - Deficiency of other specified B group vitamins Complete Blood Count Auto Diff Today Z00.00 - Encounter for general adult medical examination without abnormal findings Comprehensive [place]. Panel Fast Today Z00.00 - Encounter for general adult medical examination without abnormal findings Microalbumin, Random (w Creat) Today I10 - Essential (primary) hypertension TSH reflex Free T4 Today Z00.00 - Encounter for general adult medical examination without abnormal findings XR DEXA axial skeleton Today M81.0 - Age-related osteoporosis without current pathological fracture MM tomosynthesis screening BI Today Z12.31 - Encounter for screening mammogram for malignant neoplasm of breast
[2025-08-31 10:26] VITALS: BP 120/60; PULSE 81; RESP 16; TEMP 36.5; O2SAT 96; BMI 20.9
== END 2025-08-31 11:21 | disposition home or self-care (01) ==
LOC: HO.HMCFM 10:28
PROVIDERS: PCP Family Medicine; Visit Provider Family Medicine
DX: M17.9 Osteoarthritis of knee, unspecified (principal); F41.9 Anxiety disorder, unspecified; M81.0 Age-related osteoporosis without current pathological fracture; M54.9 Dorsalgia, unspecified; E78.5 Hyperlipidemia, unspecified; Z00.00 Encounter for general adult medical examination without abnormal findings

== ENCOUNTER → 2025-08-31 10:28 | Outpatient (BNVA) | payer MEDICARE, OTHER, SELFPAY | PROVIDERS: PCP Family Medicine; Visit Provider Family Medicine | DX: Z00.00 Encounter for general adult medical examination without abnormal findings (principal); M81.0 Age-related osteoporosis without current pathological fracture; M17.9 Osteoarthritis of knee, unspecified; F41.9 Anxiety disorder, unspecified; M54.9 Dorsalgia, unspecified; E78.5 Hyperlipidemia, unspecified; E55.9 Vitamin D deficiency, unspecified; E53.8 Deficiency of other specified B group vitamins; I10 Essential (primary) hypertension | CPT/HCPCS: 96127; 99202 ==

== ENCOUNTER 2025-09-01 09:00 | Outpatient (REF) | payer MEDICARE, OTHER, SELFPAY ==
[2025-09-01 11:31] LABS: MANUAL DIFF FLAG NO
[2025-09-01 11:37] LABS: Hematocrit 37.3 % (37.0-47.0); Hemoglobin 11.9 g/dl (12.0-16.0); Imm Gran Abs Auto 0.01 X10*3/uL (0.00-0.03); Imm Gran Pct Auto 0.3 % (0.0-0.4); Lymphocytes Absolute Auto 1.1 X10*3/uL (1.2-4.9); Mean Corpuscular HGB Conc 31.9 g/dl (31.0-35.0); Mean Corpuscular Hemoglobin 30.2 pg (27.0-33.0); Mean Corpuscular Volume 94.7 fL (80.0-98.0); NRBC Abs Auto 0.000 X10*3/uL (0.0-0.012); NRBC Pct Auto 0.0 /100WBC (0.0-0.2); Platelet Count 277 X10*3/uL (160-400); Red Blood Count 3.94 X10*6/uL (4.20-5.50); White Blood Count 3.2 X10*3/uL (4.8-10.8)
[2025-09-01 12:36] LABS: Alanine Aminotransferase 13 U/L (0-31); Albumin Level 4.0 g/dL (3.5-5.0); Alkaline Phosphatase 63 U/L (39-117); Anion Gap 10 (12-20); Aspartate Amino Transferase 23 U/L (5-31); Blood Urea Nitrogen 12 mg/dL (9-16); Calcium 8.9 mg/dL (8.4-10.2); Carbon Dioxide 29 mmol/L (22-29); Chloride 108 mmol/L (96-108); Cholesterol 184 mg/dL (<200); Estimated Glomerular Filt Rate > 60; HDL Cholesterol 62 mg/dL (>40); Potassium 3.9 mmol/L (3.3-5.1); Sodium 143 mmol/L (135-145); Total Protein 6.8 g/dL (6.5-8.0); Triglycerides 56 mg/dL (<150)
[2025-09-01 12:42] LABS: Appearance Urine Clear; Glucose Urine UA Negative (Negative); PH 6.0 (5.0-9.0); Specific Gravity - Urine 1.020 (1.005-1.025)
[2025-09-01 12:50] LABS: Folate 14.1 ng/mL (> or = 4.0); Vitamin B12 > 2000 pg/mL (200-900)
[2025-09-01 13:02] LABS: Microalbum/Creatinine Ratio Ur 5.9 ug/mg cr (<30)
== END 2025-09-01 09:01 | disposition home or self-care (01) ==
LOC: HO.WFDLDS 09:00
PROVIDERS: Visit Provider Family Medicine
DX: Z00.00 Encounter for general adult medical examination without abnormal findings (principal); I10 Essential (primary) hypertension; E53.8 Deficiency of other specified B group vitamins; E55.9 Vitamin D deficiency, unspecified
CPT/HCPCS: 36415; 80053; 80061; 81003; 82043; 82306; 82570; 82607; 82746; 84443; 85025

== ENCOUNTER 2025-10-02 11:26 | Emergency (ER) | payer MEDICARE, OTHER, SELFPAY ==
--- NOTE | ~2025-10-02 | XR_ITS ---
EXAMINATION: XR CHEST CLINICAL INFORMATION: Cough COMPARISON: Previous chest x-ray March 2025 TECHNIQUE: 2 views of the chest were obtained. FINDINGS: The lungs are clear. No consolidation or pulmonary edema. No pleural effusion or pneumothorax. Cardiac and mediastinal contours are stable. Mild degenerative changes of the spine and curvature to the right. XR/XR chest 2V IMPRESSION: No evidence for acute disease in the chest. Electronically signed by: Elsy Zabala MD 10/02/2025 12:04 PM [facility]
[2025-10-02 11:34] VITALS: BP 131/92; PULSE 87; RESP 16; TEMP 36.7; O2SAT 97; BMI 20.1
--- NOTE | 2025-10-02 11:36 | ED_ITS ---
HPI - General Adult General Chief complaint: Upper Respiratory Symptoms Stated complaint: infection Time Seen by Provider: 10/02/25 12:47 Source: patient, RN notes reviewed and old records reviewed Mode of arrival: ambulatory Limitations: no limitations History of Present Illness ED Provider: MIR Townsend HPI narrative: 80-year-old female with medical history of HLD, osteoporosis, anxiety, ovarian cyst presents to the ED due to 2 days of cough with sputum production, and right-sided tightness in her chest. Patient states she began coughing with sputum production 2 days ago but woke up this morning with red tinged sputum, feeling shaky and weak. Patient reports her cough is most significant in the mornings and becomes more mild as the day progresses. Patient states she was most concerned with sputum color. Patient states her daughter works at a school and has had many sick contacts, and she has been around her lately. Patient states that she tried to make an appointment with her primary care doctor gradually going to this morning however she reached an answering service who told her to come to the ED for further evaluation. Denies abdominal pain, nausea, vomiting, MD complaint: cough with sputum production Related Data Previous Rx's ?Medication ?Instructions ?Recorded albuterol sulfate 90 mcg/actuation 2 inh inhalation Q4 -6H PRN 10/02/25 aerosol inhaler (Ventolin HFA) shortness of breath or wheezing #6.7 grams Allergies Allergy/AdvReac Type Severity Reaction Status Date / Time codeine (CODEINE) Allergy Unknown HIVES Verified 10/02/25 11:36 ephedrine (EPHEDRINE) Allergy Unknown TACHYCARDIA Verified 10/02/25 11:36 ibuprofen Allergy Unknown Stomach Verified 10/02/25 11:36 Upset kiwi (KIWI) Allergy Unknown UNKNOWN Verified 10/02/25 11:36 latex (LATEX) Allergy Unknown HIVES Verified 10/02/25 11:36 morphine (MORPHINE) Allergy Unknown RASH Verified 10/02/25 11:36 NSAIDS (Non-Steroidal Allergy Unknown STOMACH Verified 10/02/25 11:36 Anti-Inflamma (NSAIDS) UPSET From DARVOCET-N 100 Allergy Severe SHORTNESS Uncoded 05/27/24 11:08 OF BREATH rubber latex Allergy Severe Rash Uncoded 05/27/24 11:08 5 Molds Allergy Unknown Cough Uncoded 05/27/24 11:08 cats Allergy Unknown Unknown Uncoded 05/27/24 11:08 Codeine Phosphate Allergy Unknown rapid Uncoded 05/27/24 11:08 heart rate Darvocet A500 Allergy Unknown Shortness Uncoded 05/27/24 11:08 of Breath Dust Allergy Unknown Cough Uncoded 05/27/24 11:08 dust Allergy Unknown Cough Uncoded 05/27/24 11:08 Insects Allergy Unknown Swelling Uncoded 05/27/24 11:08 insects Allergy Unknown Swelling Uncoded 05/27/24 11:08 kiwi fruit Allergy Unknown swelling Uncoded 05/27/24 11:08 throat Maple Allergy Unknown Unknown Uncoded 05/27/24 11:08 maple Allergy Unknown sinus Uncoded 05/27/24 11:08 mold Allergy Unknown Cough Uncoded 05/27/24 11:08 Novocain Allergy Unknown Numbness Uncoded 05/27/24 11:08 Pig weed Allergy Unknown Unknown Uncoded 05/27/24 11:08 pig weed Allergy Unknown Unknown Uncoded 05/27/24 11:08 poplar Allergy Unknown Unknown Uncoded 05/27/24 11:08 Ragweed Allergy Unknown Unknown Uncoded 05/27/24 11:08 ragweed Allergy Unknown Unknown Uncoded 05/27/24 11:08 Review of Systems 2 Review of Systems: Yes all other systems are reviewed and are negative PMFSH Past Medical History Attestation statement: The following information was validated with the patient. 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 Ovarian cyst Social History Social History Housing: House Alcohol intake: never Patient Tobacco Use Status: Never used Tobacco Smoked in Last 30 Days: No e-Cigarette/Vaping Use: Never Used Second Hand Smoke Exposure: No Use of substances other than those prescribed or required for medical reasons: No Advance Directives: No Advance Directives Information Provided: Yes service: No Current occupational status: retired Current occupational exposures/hazards: No Cognitive needs: No Hearing needs: No Vision needs: Yes Physical Exam ED Vital Signs: Vital Signs - 24 hr 10/02/25 11:34 10/02/25 14:00 10/02/25 15:15 Temperature 98.0 F 98.0 F 98.0 F Pulse Rate 87 71 71 Respiratory Rate 16 18 Blood Pressure 131/92 H 156/60 H 156/60 H Pulse Oximetry 97 98 98 Oxygen Delivery Method Room Air Room Air Room Air BMI result Body Mass Index 20.1 GENERAL APPEARANCE: ?AxOx4, generally well-appearing, nontoxic appearing, no acute distress. HEENT: ?NC, AT. MMM. EOMI, clear conjunctiva, oropharynx clear. NECK: ?Supple without lymphadenopathy.? No stiffness or restricted ROM. HEART:? Normal rate and regular rhythm, normal S1/S1, no m/r/g LUNGS:? CTAB, moving air well. No ronchi, crackles or wheezes are heard. No increased work of breathing, no accessory muscle use, no pursed lip breathing ABDOMEN: ?Soft, nontender, nondistended BACK: No CVAT, no obvious deformity. EXTREMITIES: ?Without cyanosis, clubbing or edema. NEUROLOGICAL: ?Grossly nonfocal. Alert and oriented, moving all 4 extremities. Skin: ?Warm and dry without any rash. Course Course Course Narrative: This is an RME: Additional HPI, ROS, PE not included below will be deferred to primary provider. RME assessment and note performed by: Renee Roth PA-C This is a [id number]-female who presents to the ER with a complaint of right sided chest pain. 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 Reports yesterday she coughed up she noticed some yellow/bloody sputum. Reports that she is not coughing. Reports that she awoke this AM and felt shakey and weak. Reports that over the last few day sshe has had hot flashes . She has not had any known fevers. Reports that her daughter is currently sick. Plan: Labs, EKG, CXR, further ER eval needed Medical Decision Making Medical Decision Making MDM Narrative: 80-year-old female with medical history of HLD, osteoporosis, anxiety, ovarian cyst presents to the ED due to 2 days of cough with sputum production, and right-sided tightness in her chest when coughing, weakness and chills. Patient reports cough is worse in the mornings and reports blood tinged sputum was most concerning for her this morning. VS on initial observation-BP 131/92, pulse rate of 87, respiratory rate of 16, afebrile with oral temp of 98.0?, O2 saturation 97% on room air. On physical exam lungs clear to auscultation bilaterally without rhonchi, rales or wheezes heard, no increased work of breathing, no accessory muscle use, no pursed lip breathing, cardiac exam reveals normal rate and rhythm without murmurs/rubs/gallops, abdomen is soft, nondistended, no rigidity, no guarding, nontender. Labs reveal leukopenia of 3.4, without left shift, H&H stable, no electrolyte abnormalities. Viral serology negative EKG reveals normal sinus rhythm without specific ST-elevation/depression, prolonged QT, no significant change when compared to prior, initial troponin undetectable at <2.7 Patient with 2 days of cough with sputum production, episode of weakness and chills that started this morning with a blood-tinged sputum. Labs with a leukopenia of 3.4 however on chart review this seems to be around the patient's baseline, when speaking with the patient patient states that she has episodes of leukopenia and this is normal for her. Patient is afebrile, without hypoxia, tachypnea. Patient's symptoms most likely viral in nature. No indication for antibiotics at this time. Patient will be discharged with albuterol inhaler. I instructed patient to follow up with her primary care doctor to ensure resolution of her symptoms. Patient worried that she needs antibiotics now, I reassured patient the sputum color is normal with viral URI and cough may persist over the next 4 weeks. I counseled patient to follow up with her primary care doctor to ensure resolution of her symptoms and that her cough is not getting any worse. I counseled patient she can manage body aches and chills at home with 500 mg of Tylenol, 400 mg of ibuprofen every 6 hours. Patient well enough to go home for self-care today. Patient is in agreement with the plan. Differential Diagnosis Differential Diagnoses: The differential diagnosis associated with the presentation includes COVID Flu RSV Pneumonia Viral URI Admission/Observation Consideration of admission/observation: Escalation of care including admission/observation considered I considered admission however patient without hypoxia, tachypnea, tachycardia, no elevated WBC, no indication for admission at this time. Lab Data MDM Lab Attestation statement: I reviewed the patient's lab results. 10/02/25 11:49 11/24/25 11:49 Labs: Lab Results 10/02/25 10/02/25 Range/Units 11:49 11:59 WBC 3.4 L (4.8-10.8) X10*3/uL RBC 4.11 L (4.20-5.50) X10*6/uL Hgb 12.5 (12.0-16.0) g/dl Hct 38.6 (37.0-47.0) % MCV 93.9 (80.0-98.0) fL MCH 30.4 (27.0-33.0) pg MCHC 32.4 (31.0-35.0) g/dl RDW 11.9 (11.0-16.0) % Plt Count 239 (160-400) X10*3/uL MPV 8.7 L (9.4-12.3) fL Immature Gran % (Auto) 0.3 (0.0-0.4) % Neut % (Auto) 53.5 (45-73) % Lymph % (Auto) 30.6 (20-40) % [place] % (Auto) 10.9 (2-11) % Eos % (Auto) 3.2 (0-4) % Baso % (Auto) 1.5 (0-2) % Lymph # (Auto) 1.0 L (1.2-4.9) X10*3/uL [place] # (Auto) 0.4 (0.1-1.2) X10*3/uL Eos # (Auto) 0.1 (0.0-0.4) X10*3/uL Baso # (Auto) 0.1 (0.0-0.2) X10*3/uL Abs Immat Gran (auto) 0.01 (0.00-0.03) X10*3/uL Absolute Neuts (auto) 1.8 L (2.0-8.3) x10*3/uL Absolute Nucleated RBC 0.000 (0.0-0.012) X10*3/uL Nucleated RBC % (auto) 0.0 (0.0-0.2) /100WBC Sodium 143 (135-145) mmol/L Potassium 3.9 (3.3-5.1) mmol/L Chloride 109 H (96-108) mmol/L Carbon Dioxide 27 (22-29) mmol/L Anion Gap 11 L (12-20) BUN 11 (9-16) mg/dL Creatinine 0.63 (0.5-1.4) mg/dL Estim Creat Clear Calc 59.5 Estimated GFR > 60 Random Glucose 109 (60-115) mg/dL Calcium 9.1 (8.4-10.2) mg/dL Magnesium 2.0 (1.6-2.6) mg/dL Total Bilirubin 0.5 (0.0-1.0) mg/dL Direct Bilirubin 0.2 (0.0-0.5) mg/dL AST 22 (5-31) U/L ALT 15 (0-31) U/L Alkaline Phosphatase 74 (39-117) U/L Troponin I High Sens < 2.7 (<3.5-17.0) ng/L Total Protein 7.1 (6.5-8.0) g/dL Albumin 4.2 (3.5-5.0) g/dL Influenza Type A (PCR) NEGATIVE (Negative) Influenza Type B (PCR) NEGATIVE (Negative) RSV RNA Qual (PCR) NEGATIVE (Negative) SARS-CoV-2 RNA (RT-PCR) NEGATIVE (Negative) Independent Interpretation I performed an independent interpretation of an: EKG and Plain X-Ray Interpretation: I personally interpreted the EKG which reveals normal sinus rhythm without specific ST-elevation/depression, lengthened QT Vent. Rate : 84 BPM Atrial Rate : 84 BPM P-R Int : 178 ms QRS Dur : 78 ms QT Int : 366 ms P-R-T Axes : 75 31 49 degrees QTcB Int : 432 ms Normal sinus rhythm Nonspecific ST abnormality Abnormal ECG When compared with ECG of 31-Dec-2020 20:00, No significant change was found I personally interpreted the CXR which was negative for infiltrates, consolidations, pneumothorax, I agree with the radiologist's interpretation Radiology Impression Discussion of test interpretation with radiology: I have reviewed the radiologist's reading. Radiologist Impression: CXR FINDINGS: The lungs are clear. No consolidation or pulmonary edema. No pleural effusion or pneumothorax. Cardiac and mediastinal contours are stable. Mild degenerative changes of the spine and curvature to the right. XR/XR chest 2V IMPRESSION: No evidence for acute disease in the chest. Electronically signed by: Elsy Zabala MD 10/02/2025 12:04 PM [facility] [place] Dictated By: Elsy Zabala MD Signed By: <Electronically signed by Elsy Zabala MD in OV> 10/02/25 1204 External Record Review External record reviewed: Inpatient record, Office record and Outpatient record Prescription Management I considered prescription management with: Antibiotic I considered antibiotic however patient with 2 days of symptoms, afebrile, no leukocytosis, no indication for antibiotic at this time. Chronic Conditions Patient?s care impacted by: Other (HLD, osteoporosis, anxiety, ovarian cyst) Discharge Plan Discharge Clinical Impression: Viral infection Patient Disposition: Home, Self-Care Instructions: Dilated Cardiomyopathy (DC), Viral Syndrome (ED) Additional Instructions: You were evaluated in the emergency department for 2 days of cough with sputum production. Your blood work was reassuring as there is no significant elevation or decrease in your white blood cell count showing concern for systemic infection. Your chest x-ray was normal. Your EKG was normal. Your symptoms are most consistent with a viral infection. Viral infections are self-limited, and should improve without antibiotics. You are being discharged with albuterol inhaler that you can use for shortness of breath during cough as her symptoms improve. To manage fever and or body aches at home you can take 500 mg of Tylenol, and 400 mg of ibuprofen every 6 hours. Ensure that you are getting plenty of hydration, eating nutritious food and getting plenty of rest to treat your symptoms. Please follow up with your primary care doctor to ensure resolution as your symptoms as if your cough gets worse or if your other symptoms get worse you may need antibiotics. It is normal for a viral cough to last 4-6 weeks after your other symptoms improve. Please return to the emergency department if you experience worsening cough, shortness of breath, chest pain, fevers over 100.4? that are not managed by Tylenol/ibuprofen, difficulty breathing, or any new/worsening/concerning symptoms. Prescriptions: New albuterol sulfate [Ventolin HFA] 90 mcg/actuation HFA aerosol inhaler 2 inh inhalation Q4-6H PRN (Reason: shortness of breath or wheezing) Qty: 6.7 0RF Interventions: ED Discharge Assessment Last Done: 10/02/25 15:15 Discharge Date/Time: 10/02/25 15:15 Print Language: Latvian
--- NOTE | 2025-10-02 11:39 | ECG_ITS ---
Test Reason : weakness Blood Pressure : */* mmHG Vent. Rate : 84 BPM Atrial Rate : 84 BPM P-R Int : 178 ms QRS Dur : 78 ms QT Int : 366 ms P-R-T Axes : 75 31 49 degrees QTcB Int : 432 ms Normal sinus rhythm Nonspecific ST abnormality Abnormal ECG When compared with ECG of 31-Dec-2020 20:00, No significant change was found Referred By: Renee Roth Electronically Signed By: Soto Westfall
[2025-10-02 11:53] LABS: MANUAL DIFF FLAG NO
[2025-10-02 11:55] LABS: Hematocrit 38.6 % (37.0-47.0); Hemoglobin 12.5 g/dl (12.0-16.0); Imm Gran Abs Auto 0.01 X10*3/uL (0.00-0.03); Imm Gran Pct Auto 0.3 % (0.0-0.4); Lymphocytes Absolute Auto 1.0 X10*3/uL (1.2-4.9); Mean Corpuscular HGB Conc 32.4 g/dl (31.0-35.0); Mean Corpuscular Hemoglobin 30.4 pg (27.0-33.0); Mean Corpuscular Volume 93.9 fL (80.0-98.0); NRBC Abs Auto 0.000 X10*3/uL (0.0-0.012); NRBC Pct Auto 0.0 /100WBC (0.0-0.2); Platelet Count 239 X10*3/uL (160-400); Red Blood Count 4.11 X10*6/uL (4.20-5.50); White Blood Count 3.4 X10*3/uL (4.8-10.8)
[2025-10-02 12:12] LABS: Alanine Aminotransferase 15 U/L (0-31); Albumin Level 4.2 g/dL (3.5-5.0); Alkaline Phosphatase 74 U/L (39-117); Anion Gap 11 (12-20); Aspartate Amino Transferase 22 U/L (5-31); Blood Urea Nitrogen 11 mg/dL (9-16); Calcium 9.1 mg/dL (8.4-10.2); Carbon Dioxide 27 mmol/L (22-29); Chloride 109 mmol/L (96-108); Creatinine Clr Calc Pharmacy 59.5; Estimated Glomerular Filt Rate > 60; Magnesium 2.0 mg/dL (1.6-2.6); Potassium 3.9 mmol/L (3.3-5.1); Sodium 143 mmol/L (135-145); Total Protein 7.1 g/dL (6.5-8.0)
[2025-10-02 12:45] LABS: Resp Syncy Virus RNA Qual PCR NEGATIVE (Negative); SARS COV2 PCR INHOUSE NEGATIVE (Negative)
[2025-10-02 13:04] LABS: Troponin-I High Sensitivity < 2.7 ng/L (<3.5-17.0)
[2025-10-02 14:00] VITALS: BP 156/60; PULSE 71; TEMP 36.7; O2SAT 98
[2025-10-02 15:15] VITALS: BP 156/60; PULSE 71; RESP 18; TEMP 36.7; O2SAT 98
== END 2025-10-02 15:15 | disposition home or self-care (01) ==
PROVIDERS: Physician Assistant Medical; Emergency Provider Emergency Medicine; PCP Family Medicine
DX: B34.9 Viral infection, unspecified (principal); R05.9 Cough, unspecified; R53.1 Weakness; E78.5 Hyperlipidemia, unspecified; Z03.818 Encounter for observation for suspected exposure to other biological agents ruled out
CPT/HCPCS: 36415; 71046; 80048; 80076; 83735; 84484; 85025; 87637; 93005; 99283; 99285

== ENCOUNTER → 2025-10-02 11:39 | Outpatient (BNV) | payer MEDICARE, OTHER, SELFPAY | PROVIDERS: Emergency Provider Emergency Medicine; PCP Family Medicine; Visit Provider Internal Medicine Cardiovascular Disease | DX: R94.31 Abnormal electrocardiogram [ECG] [EKG] (principal); R53.1 Weakness | CPT/HCPCS: 93010 ==

== ENCOUNTER → 2025-10-02 11:40 | Outpatient (BNV) | payer MEDICARE, OTHER, SELFPAY | PROVIDERS: Emergency Provider Emergency Medicine; PCP Family Medicine; Visit Provider Radiology Diagnostic Radiology | DX: R05.9 Cough, unspecified (principal) | CPT/HCPCS: 71046 ==

== ENCOUNTER 2025-10-03 14:34 | Outpatient (AMB) | payer MEDICARE, OTHER, SELFPAY ==
--- NOTE | 2025-10-03 14:38 | MHC.PC.OV ---
Vital Signs 10/03/25 14:41 Height 5 ft 5 in Weight 122 lb 6 oz BMI 20.4 BP 130/63 Blood Pressure Location Rt brachial Position Sitting Respiration 13 Pulse 75 Pulse Source Pulse Oximeter Temp 97.4 F Temp Source Temporal Artery Scan Pulse Oximetry (%) 93 Oxygen Delivery Method Simple Mask Int[place] Visit Reasons[place] [facility] [place] Int[place] Note[place] [facility] [place] Hat Binder Required: No Allergies codeine (CODEINE) Allergy (Unknown, Verified 10/03/25 14:38) HIVES ephedrine (EPHEDRINE) Allergy (Unknown, Verified 10/03/25 14:38) TACHYCARDIA ibuprofen Allergy (Unknown, Verified 10/03/25 14:38) Stomach Upset kiwi (KIWI) Allergy (Unknown, Verified 10/03/25 14:38) UNKNOWN latex (LATEX) Allergy (Unknown, Verified 10/03/25 14:38) HIVES morphine (MORPHINE) Allergy (Unknown, Verified 10/03/25 14:38) RASH NSAIDS (Non-Steroidal Anti-Inflamma (NSAIDS) Allergy (Unknown, Verified 10/03/25 14:38) STOMACH UPSET From DARVOCET-N 100 Allergy (Severe, Uncoded 10/03/25 14:38) SHORTNESS OF BREATH rubber latex Allergy (Severe, Uncoded 10/03/25 14:38) Rash 5 Molds Allergy (Unknown, Uncoded 10/03/25 14:38) Cough cats Allergy (Unknown, Uncoded 10/03/25 14:38) Unknown Codeine Phosphate Allergy (Unknown, Uncoded 10/03/25 14:38) rapid heart rate Darvocet A500 Allergy (Unknown, Uncoded 10/03/25 14:38) Shortness of Breath Dust Allergy (Unknown, Uncoded 10/03/25 14:38) Cough dust Allergy (Unknown, Uncoded 10/03/25 14:38) Cough Insects Allergy (Unknown, Uncoded 10/03/25 14:38) Swelling insects Allergy (Unknown, Uncoded 10/03/25 14:38) Swelling kiwi fruit Allergy (Unknown, Uncoded 10/03/25 14:38) swelling throat Maple Allergy (Unknown, Uncoded 10/03/25 14:38) Unknown maple Allergy (Unknown, Uncoded 10/03/25 14:38) sinus mold Allergy (Unknown, Uncoded 10/03/25 14:38) Cough Novocain Allergy (Unknown, Uncoded 10/03/25 14:38) Numbness Pig weed Allergy (Unknown, Uncoded 10/03/25 14:38) Unknown pig weed Allergy (Unknown, Uncoded 10/03/25 14:38) Unknown poplar Allergy (Unknown, Uncoded 10/03/25 14:38) Unknown Ragweed Allergy (Unknown, Uncoded 10/03/25 14:38) Unknown ragweed Allergy (Unknown, Uncoded 10/03/25 14:38) Unknown Tobacco use date assessed: 10/03/25 Fall risk assessment: No Falls in past year Last assessed Fall Risk: 10/03/25 Dental Screening Dental Screen Date: 10/03/25 Did you have a dental visit in the last 12 months?: Yes Did you have a dental problem in the last 6 months where you did not have access to dental care?: No Was dental information given to patient?: Patient has dentist H[place] [facility] [place] HPI Details 80 y/o female presents to f/u ED visit 10/02/25 for cough, R sided tightness in her chest. They noted pt's symptoms were most likely viral in nature. Was discharged with albuterol inhaler. Pt notes symptoms had started Thursday last week. Has not picked up her albuterol inhaler yet. 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 Ovarian cyst Social History Housing: House Alcohol intake: never Patient Tobacco Use Status: Never used Tobacco e-Cigarette/Vaping Use: Never Used Second Hand Smoke Exposure: No service: No Current occupational status: retired Current occupational exposures/hazards: No Cognitive needs: No Hearing needs: No Vision needs: Yes Questionnaire Thrive Questionnaire Date Thrive assessed: 08/24/25 I am a: Patient What is your living situation today?: I have a steady place to live Within the past 12 months, did the food you bought not last and you didn't have the money to get more?: Never true Within the past 12 months, did you worry whether your food would run out before you got money to buy more?: Never true Do you have trouble paying for medicines?: No Do you have trouble getting transportation to medical appointments?: No Do you have trouble paying your heating and electricity bill?: No Do you have trouble taking care of your child, family member or friend?: No Do you have trouble with day-to-day activities such as bathing, preparing meals, shopping, managing finances, etc.?: No Are you currently unemployed and looking for a job?: No Are you interested in more education?: No Please select the resources that you would like help with: None Currently or been in a relationship where the following occur: No concerns reported THRIVE Score: 0 CARLOS ALBERTO-7 AMB Questionnaire CARLOS ALBERTO-7 Date CARLOS ALBERTO - 7 assessed: 08/31/25 Source: Developed by Drs. Kojo Tapia, Alicia Finney, Rupert Pulliam and colleagues, with an educational yoel from [employer]. Review of Systems Const Denies chills, Denies fatigue, Denies fever(s), Denies headache(s) and Denies weakness ENT Denies dizziness and Denies headache(s) Card Denies dyspnea Resp Denies cough, Denies dyspnea, Denies wheezing and Denies other (shortness of breath) Musc Denies numbness and Denies tingling Neuro Denies dizziness, Denies headache(s), Denies numbness, Denies tingling and Denies weakness Psych Denies anxiety and Denies depression Endo Denies fatigue Aller/Immun Denies wheezing Physical exam (Primary Care) Vital Signs: Last Vital Signs Temp 97.4 F 10/03/25 14:41 Pulse 75 10/03/25 14:41 Resp 13 10/03/25 14:41 BP 130/63 10/03/25 14:41 Pulse Ox 93 10/03/25 14:41 Oxygen Delivery Method Simple Mask 10/03/25 14:41 BMI result Body Mass Index 20.4 Tobacco/Smoking Status: Tobacco use Status Tobacco use date assessed 10/03/25 10/03/25 14:44 Patient Tobacco Use Status Never used Tobacco 10/03/25 14:44 e-Cigarette/Vaping Use Never Used 10/03/25 14:44 Thrive Assessment: Date of Thrive Assessment Date Thrive assessed 08/24/25 10/03/25 14:44 Currently or been in a relationship where the following occur: No concerns reported Const General: well developed; No acute distress Nutritional Appearance: well nourished Orientation/consciousness: patient oriented x3 HENMT Head: Yes normocephalic and Yes atraumatic Eyes General: appearance normal, both eyes and all related structures Pupils: Equal, round and reactive pupils present EOM: EOMs intact bilaterally Resp Effort & Inspection: normal respiratory effort Auscultation: clear to auscultation bilaterally Cardio Rate: regular rate Rhythm: regular rhythm Heart sounds: S1 normal heart sound present, S2 normal heart sound present, no gallops, no murmurs and no rubs Neuro General: patient oriented x3 and gait normal Cranial nerves: Yes Equal, round and reactive pupils present Psych Affect: normal affect Coding Level of Care Code Est Pt Level 3 (21081) Diagnoses Viral infection B34.9 Chest tightness R07.89 Bronchitis J40 Assessment & Plan Assessment & Plan (1) Viral infection: Code(s): B34.9 - Viral infection, unspecified Category: Medical (2) Chest tightness: Code(s): R07.89 - Other chest pain Category: Medical (3) Bronchitis: Code(s): J40 - Bronchitis, not specified as acute or chronic Category: Medical Plan Likely bronchitis secondary to a viral infection There is no antibiotic medication for viruses. They must run their course. Most average 5-7 days but 7-10 days is not uncommon and up to 14 days is still possible. A cough is often the last symptom to resolve and this can last for weeks in some cases. Rest Hydrate well - Drink plenty of fluids. Especially water. Tylenol or ibuprofen for muscle aches, headache, fever/discomfort Can use [id number] medications for cough such as Delsym or DayQuil. Prescription cough medicines have been shown to be no better. COVID/flu/RSV was negative Chest x-ray negative for pneumonia or other acute pulmonary lesions. She had been given an albuterol inhaler but has not picked this up yet. Encouraged her to pick this up. She will let know if she is not improving or worsens
[2025-10-03 14:41] VITALS: BP 130/63; PULSE 75; RESP 13; TEMP 36.3; O2SAT 93; BMI 20.4
== END 2025-10-03 15:41 | disposition home or self-care (01) ==
LOC: HO.HMCFM 14:34
PROVIDERS: PCP Family Medicine; Visit Provider Family Medicine
DX: B34.9 Viral infection, unspecified (principal); R07.89 Other chest pain; J40 Bronchitis, not specified as acute or chronic

== ENCOUNTER → 2025-10-03 14:34 | Outpatient (BNVA) | payer MEDICARE, OTHER, SELFPAY | PROVIDERS: PCP Family Medicine; Visit Provider Family Medicine | DX: B34.9 Viral infection, unspecified (principal); R07.89 Other chest pain; J40 Bronchitis, not specified as acute or chronic | CPT/HCPCS: 99212 ==